=== PATIENT | male | born 1945 | race Caucasian/White ===

== ENCOUNTER 2018-09-30 09:57 | Emergency (ER) | payer OTHER ==
[~2018-09-30] VITALS: Ht 180.3 cm; Wt 108.9 kg
[~2018-09-30 09:57] MED LIST: AMBIEN 10 MG TA10 MG PO; AUGMENTIN 875-1 EACH PO; FLAGYL500 MG PO; LEVAQUIN 500 M500 M2 PO; LORTAB PO; VICODIN 5-5001 EACH PO; ZOLOFT20 MG/1 ML PO
[2018-09-30] MEDS ORDERED: HYDROCODONE-AP1 EAC6 PO (11:59)
[2018-09-30] MEDS ORDERED: NABUMETONE 750750 M1 PO (11:59)
[2018-09-30 12:10] VITALS: BP 143/68
--- NOTE | 2018-10-01 10:31 | EKG ---
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 [employer]: : 1945 Requested By: Bambi Martin Order Number: [id number] MD: Yemi Vaz Measurements Intervals [place] Rate: 63 P: 4 [place]: 58 QRS: -60 QRSD: 112 T: 10 QT: 422 QTc: 433 Interpretive Statements Sinus rhythm Abnormal R-wave progression, late transition Left ventricular hypertrophy Left anterior hemiblock Compared to ECG 05/27/2015 17:53:15 No significant change Electronically Signed On 10-01-2018 10:31:07 CDT by Yemi Vaz [email or web address] ��������������������������������������������� <ELECTRONICALLY SIGNED> ���������������������������������������� By: Yemi Vaz MD ��������������������������������������������� 10/01/18 1031 1016 Yemi Vaz MD /MIL
== END 2018-09-30 12:20 | disposition home or self-care (01) ==
LOC: ER 09:57
DX: S49.82XA Other specified injuries of left shoulder and upper arm, initial encounter (principal); K21.9 Gastro-esophageal reflux disease without esophagitis; E78.00 Pure hypercholesterolemia, unspecified; Z90.49 Acquired absence of other specified parts of digestive tract; Z87.891 Personal history of nicotine dependence; X58.XXXA Exposure to other specified factors, initial encounter; Y93.89 Activity, other specified; Y92.89 Other specified places as the place of occurrence of the external cause; Y99.8 Other external cause status

== ENCOUNTER 2019-11-05 16:05 | Emergency (ER) | payer OTHER ==
[~2019-11-05] VITALS: Ht 177.8 cm; Wt 111.1 kg
[~2019-11-05 16:05] MED LIST changes: +HYDROCODONE-AP1 EAC6 PO; +NABUMETONE 750750 M1 PO
[2019-11-05 16:54] LABS: BASOPHILS 0.5 % (0.0-2.0); EOSINOPHILS 0.2 % (0.0-3.0); HEMOGLOBIN 14.2 gm/dL (14.0-18.0); LYMPHOCYTES 6.5 % (24.0-44.0); MCH 29.8 pg (26.0-34.0); MCHC 33.8 g/dL (28.0-37.0); MCV 87.9 fL (80.0-100.0); MONOCYTES 6.9 % (1.0-8.0); PLATELET COUNT 179 thou/uL (150-400); POLYS 85.9 % (36.0-66.0); RBC 4.78 mil/uL (4.50-6.00); RDW 14.1 % (10.5-14.5); WBC 8.1 thou/uL (4.0-11.0)
[2019-11-05 16:55] LABS: URINE BILIRUBIN NEGATIVE (Negative); URINE BLOOD 2+ (Negative); URINE CLARITY CLEAR; URINE COLOR YELLOW; URINE GLUCOSE-RANDOM* NEGATIVE (Negative); URINE KETONES NEGATIVE (Negative); URINE LEUKOCYTES-REFLEX NEGATIVE (Negative); URINE NITRITE-REFLEX NEGATIVE (Negative); URINE PROTEIN (DIPSTICK) 1+ (Negative); URINE SPECIFIC GRAVITY 1.025 (1.005-1.035)
[2019-11-05 17:00] LABS: BACTERIA-REFLEX None Seen /HPF (None Seen); CRYSTALS None Seen /LPF (None Seen); SQUAMOUS None Seen /LPF (0-3); URINE RBC 0-2 Rare /HPF (0-2); URINE WBC-REFLEX None Seen /HPF (0-5)
[2019-11-05 17:04] LABS: ANION GAP 8 mmol/L (7-16); BUN 16 mg/dL (7-18); CALCIUM 8.3 mg/dL (8.5-10.1); CHLORIDE 103 mmol/L (98-107); CO2 27 mmol/L (21-32); CREATININE 1.4 mg/dL (0.7-1.3); GLUCOSE 112 mg/dL (74-106); POTASSIUM 3.5 mmol/L (3.5-5.1); SODIUM 138 mmol/L (136-145)
[2019-11-05 17:13] LABS: ALBUMIN 2.9 g/dL (3.4-5.0); SGOT 32 U/L (15-37); SGPT 48 U/L (30-65); TOTAL BILIRUBIN 1.1 mg/dL (<0.1-1.0); TOTAL PROTEIN 6.7 g/dL (6.4-8.2); TROPONIN-I <0.06 ng/mL (<0.06)
[2019-11-05] MEDS ORDERED: ZPAK PO (17:38)
[2019-11-05] MEDS ORDERED: PROAIR HFA8.5 GM INH (17:38)
[2019-11-05 17:54] VITALS: BP 148/73
[2019-11-06] MEDS ORDERED: LIPITOR40 MG PO (02:58)
[2019-11-06] MEDS ORDERED: VENLAFAXINE HCL75 M2 PO (03:01)
[2019-11-06] MEDS ORDERED: DESYREL150 MG PO (03:03)
--- NOTE | 2019-11-06 08:03 | EKG ---
[facility] [address] [address] ELECTROCARDIOGRAM REPORT Name: THOMAS FABIAN Room #: DEP [facility] [id number] Admission: 11/05/19 Attend Phys: Discharge: 11/05/19 Date of : 43 Report #: [id number] THIS REPORT FOR: cc: Alex Hernández MD, Rene P. MD Lundgren, Craig H. 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 : 1945 Requested By: Regine Grady Order Number: [id number] MD: Javy Manzo Measurements Intervals [place] Rate: 68 P: -23 AL: 212 QRS: -57 QRSD: 125 T: 19 QT: 416 QTc: 443 Interpretive Statements Sinus rhythm Ventricular premature complex Borderline prolonged AL interval RBBB and LAFB Left ventricular hypertrophy Compared to ECG 09/30/2018 10:16:55 Ventricular premature complex(es) now present Right bundle-branch block now present Electronically Signed On 11-06-2019 8:01:20 CDT by Javy Manzo [email or web address] <ELECTRONICALLY SIGNED> By: Javy Manzo MD, [facility] 11/06/19 0801 1624 1624 Javy Manzo MD, [facility] /EPI
== END 2019-11-05 17:54 | disposition home or self-care (01) ==
LOC: ER 16:05
PROVIDERS: Nurse Practitioner Family
DX: J18.9 Pneumonia, unspecified organism (principal); E78.00 Pure hypercholesterolemia, unspecified; K21.9 Gastro-esophageal reflux disease without esophagitis; Z03.818 Encounter for observation for suspected exposure to other biological agents ruled out; Z90.49 Acquired absence of other specified parts of digestive tract; Z79.899 Other long term (current) drug therapy; Z87.891 Personal history of nicotine dependence

== ENCOUNTER 2019-11-05 23:31 | Inpatient (IN) | payer OTHER ==
[~2019-11-05] VITALS: Ht 177.8 cm; Wt 104.9 kg
[~2019-11-05 23:31] MED LIST changes: +PROAIR HFA8.5 GM INH; +ZPAK PO
[2019-11-06] VITALS (15 sets, daily range): BP systolic 103–179; BP diastolic 57–92
[2019-11-06] MEDS ORDERED: LIPITOR40 MG PO (02:58)
[2019-11-06] MEDS ORDERED: VENLAFAXINE HCL75 M2 PO (03:01)
[2019-11-06] MEDS ORDERED: DESYREL150 MG PO (03:03)
--- NOTE | 2019-11-06 06:42 | NUR ---
PT ARRIVED TO UNIT APPROX 0245, ADMISSION AND ASSESSMENT COMPLETED. IV FLUIDS AND ABX STARTED. PT A&Ox4, [place] AND LEFT HEARING AIDES AT HOME, REPORTS THAT WHEN HE CLOSES HIS EYES HE SEES ALL SORTS OF SHAPES LIKE ANIMALS AND PEOPLE AND THAT HE HEARS MUSIC THAT ISN'T PRESENT. DENIES PAIN. PT REPORTS BEING SOB IS TYPICAL FOR HIM BUT HE HAS AUDIBLE WHEEZES AND EASILY SOB WITH ANY ACTIVITY. HE IS IMPATIENT TO GO HOME. WILL CONTINUE TO MONITOR.
[2019-11-06 10:03] LABS: HEMATOCRIT 43.4 % (42.0-52.0); HEMOGLOBIN 14.4 gm/dL (14.0-18.0); MCH 29.3 pg (26.0-34.0); MCHC 33.2 g/dL (28.0-37.0); MCV 88.1 fL (80.0-100.0); RBC 4.93 mil/uL (4.50-6.00); RDW 14.7 % (10.5-14.5); WBC 11.3 thou/uL (4.0-11.0)
[2019-11-06 10:14] LABS: CALCIUM 8.4 mg/dL (8.5-10.1); CREATININE 1.4 mg/dL (0.7-1.3); POTASSIUM 3.2 mmol/L (3.5-5.1)
--- NOTE | 2019-11-06 14:20 | NUR ---
INITIAL ASSESSMENT: SW reviewed chart and spoke with nursing and attending physician. Pt was admitted from home due to pneumonia/visual hallucinations. Pt is in Enhanced Isolation to r/o COVID-19. Pt's first test is negative. Repeat test ordered. Pt became agitated this morning and trying to leave AMA. Pt is in bilateral wrist restraints at this time. Psych consulted. RUBIO spoke with pt's , Sheila, via phone. Introduced role of SW. Pt is normally alert/orientated x 4. Pt and spouse live in their home. Prior to admission, pt was independent with ADLs. No use of DME. No hx of services and post-acute placement. Pt's PCP is Dr. Hernández. Pt's states that pt started having headaches on , 10/31 and got worse since that time. Pt came to the ER on Tuesday, 11/03. Was evaluated by ER staff and pt chose to not be admitted. Pt returned home. Pt's condition did not improve. Pt returned to the ER yesterday and was admitted early this morning. Pt is no 4L of O2 and fever of 103.6 this afternoon. Pt's states she is not able to bring pt home in his current condition. Pt's was tested this morning for COVID-19. SW explained that pt is not medically stable for discharge and that psych will evaluate pt when he is able to participate. SW is following to assist as needed with discharge planning.
[2019-11-06 18:11] LABS: BE(vivo) -4.9 mmol/L (-2 to +3); HCO3 19.7 mmol/L (22.0-26.0); PCO2 35.3 mmHg (35.0-45.0); PO2 61.4 mmHg (80.0-100.0); pH 7.364 (7.360-7.450)
--- NOTE | 2019-11-06 19:55 | NUR ---
PT'S FIRST COVID TEST WAS NEGATIVE, BUT PT HAS SOB AND FEVER, PT HAS SECOND COVID TEST AT TODAY 1400PM.
--- NOTE | 2019-11-06 19:56 | NUR ---
PT STARTS MORE CONFUSED AND AGITATION ABOUT 1000AM, PT HAS FEVER AFTERNOON, RN HAS CALLED HOSPITAL , NEW ORDER RECEIVED, PT'S FEVER HAS IMPROVED BY 1600PM, BUT PT HAS INCRESED SOB , BREATHING IS FAST 30-35 / MIN, RN HAS CALLED HOSPITAL , ABG DONE , NEW CONSULT PULMONARY DR HAS SEEING PT, NEW ORDER, APPLY BIPAP AND TRANSFER PT TO ICU, PT STARTS BOTH WRIST SOFT RESTRAINT AT 1315PM.
--- NOTE | 2019-11-06 21:52 | NUR ---
ASSUMED CARE FOR PT AT 1845. PT ON BIPAP TO ASSIST WITH BREATHING. PT WAS PLACED IN RESTRAINTS EARLIER IN THE DAY. COVID TEST #2 CAME BACK NEGATIVE. PUT ORDERS FOR PT TO BE TRANSFERRED TO ICU DUE TO INCREASING PULMONARY DISTRESS AND POSSIBLE SEPSIS RISK. GAVE REPORT TO ONEYDA IN ICU. PT WAS TRANSFERRED TO ROOM 243.
[2019-11-06 22:56] LABS: BE(vivo) -6.1 mmol/L (-2 to +3); HCO3 19.9 mmol/L (22.0-26.0); PCO2 40.9 mmHg (35.0-45.0); PO2 212.6 mmHg (80.0-100.0); sO2 99.3 % (92.0-98.0)
[2019-11-06 22:57] LABS: pH 7.305 (7.360-7.450)
[2019-11-06 23:03] LABS: CALCIUM 8.2 mg/dL (8.5-10.1); CREATININE 1.6 mg/dL (0.7-1.3); TROPONIN-I 0.08 ng/mL (<0.06)
[2019-11-06 23:06] LABS: POTASSIUM 4.4 mmol/L (3.5-5.1)
[2019-11-06 23:47] LABS: ICTOTEST (BILI CONFIRMATORY) Positive (Negative); URINE BILIRUBIN 1+ (Negative); URINE BLOOD 3+ (Negative); URINE CLARITY SL CLOUDY; URINE COLOR YELLOW; URINE GLUCOSE-RANDOM* NEGATIVE (Negative); URINE KETONES TRACE (Negative); URINE LEUKOCYTES-REFLEX NEGATIVE (Negative); URINE NITRITE-REFLEX NEGATIVE (Negative); URINE PROTEIN (DIPSTICK) 3+ (Negative); URINE SPECIFIC GRAVITY >= 1.030 (1.005-1.035); URINE UROBILINOGEN 0.2 E.U./dl (0.2-1.0)
[2019-11-06 23:52] LABS: FINE GRANULAR CASTS >10 Many /LPF (None Seen); MUCUS 4-6 Moderate strn/LPF (None Seen); SQUAMOUS None Seen /LPF (0-3)
[2019-11-06 23:53] LABS: BACTERIA-REFLEX 1-9 Few /HPF (None Seen); COARSE GRANULAR CASTS 0-3 Few /LPF (None Seen); CRYSTALS None Seen /LPF (None Seen); TRANSITIONAL EPITHEL CELL 4-10 Moderate /LPF (None Seen); URINE RBC >20 Many /HPF (0-2); URINE WBC-REFLEX 0-5 Rare /HPF (0-5)
[2019-11-07] VITALS (87 sets, daily range): BP systolic 94–142; BP diastolic 49–77
[2019-11-07 01:08] LABS: HEMATOCRIT 37.5 % (42.0-52.0); HEMOGLOBIN 12.5 gm/dL (14.0-18.0); MCH 29.6 pg (26.0-34.0); MCHC 33.4 g/dL (28.0-37.0); MCV 88.7 fL (80.0-100.0); RBC 4.23 mil/uL (4.50-6.00); RDW 14.7 % (10.5-14.5); WBC 9.4 thou/uL (4.0-11.0)
[2019-11-07 01:20] LABS: CALCIUM 7.4 mg/dL (8.5-10.1); CREATININE 1.5 mg/dL (0.7-1.3); POTASSIUM 3.8 mmol/L (3.5-5.1)
[2019-11-07 01:23] LABS: APTT 41.8 Seconds (24.5-32.8); INR 1.1; PROTIME 11.4 Seconds (9.3-11.4)
[2019-11-07 01:28] LABS: FIBRINOGEN 831.9 mg/dL (210-360)
[2019-11-07 05:24] LABS: BE(vivo) -5.4 mmol/L (-2 to +3); HCO3 21.2 mmol/L (22.0-26.0); PCO2 45.5 mmHg (35.0-45.0); PO2 109.2 mmHg (80.0-100.0); sO2 97.4 % (92.0-98.0)
[2019-11-07 05:25] LABS: pH 7.286 (7.360-7.450)
[2019-11-07 06:00] LABS: HEMATOCRIT 35.5 % (42.0-52.0); HEMOGLOBIN 11.8 gm/dL (14.0-18.0); MCH 29.7 pg (26.0-34.0); MCHC 33.3 g/dL (28.0-37.0); RBC 3.98 mil/uL (4.50-6.00); RDW 14.8 % (10.5-14.5); WBC 8.4 thou/uL (4.0-11.0)
[2019-11-07 06:14] LABS: CALCIUM 7.6 mg/dL (8.5-10.1); CREATININE 1.4 mg/dL (0.7-1.3); MAGNESIUM 2.4 mg/dL (1.8-2.4); POTASSIUM 3.5 mmol/L (3.5-5.1); TOTAL BILIRUBIN 0.6 mg/dL (0.2-1.0); TOTAL PROTEIN 5.5 g/dL (6.4-8.2)
--- NOTE | 2019-11-07 06:14 | NUR ---
PATIENT RECEIVED AT APPROX 2100 FROM 3W UNIT DUE TO RESP. DISTRESS. PATIENT ARRIVED WITH HEART RATE IN THE 140S, AND RR IN THE 50S, AND BP 160-170S SYSTOLIC. DR. ROBERTS NOTIFIED AT THAT TIME. AT APPROX 220O, ER DOCTOR TO THE BEDSIDE TO INTUBATE PATIENT. PATIENT STARTED ON A DIPROVAN GTT AND A VERSED GTT. ORDERS FOR HEAD CT WILL BE DEFERRED TO THE DAY TEAM PER DR. ROBERTS'S ORDERS. PATIENT ALSO FEBRILE ON ARRIVAL TO ICU AT A MAX OF 101.9 NOW DOWN TO 97.8. URINE OUTPUT MARGINAL THROUGH THE SHIFT, NEW ORDERS RECEIVED, SEE CHART. VITALS STABLE AT THIS TIME. CRITICAL PH ON ABG CALLED TO DR. ROBERTS, NO CHANGES AT THIS TIME. DR. GARCIA NOTIFIED AND UPDATED OF PATIENT'S CHANGE IN CONDITION. WILL REPORT OFF TO DAY TEAM.
--- NOTE | 2019-11-07 08:36 | EKG ---
[facility] [address] [employer] [place] [address] ELECTROCARDIOGRAM REPORT Name: THOMAS FABIAN Room #: 243-P ADM IN M.R.#: [id number] Admission: 11/06/19 Attend Phys: Barak Joyner MD Discharge: Date of : 43 Report #: [id number] THIS REPORT FOR: cc: Alex Hernández MD, Rene P. 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 : 1945 Requested By: Brock Hardy Order Number: [id number] MD: Javy Manzo Measurements Intervals [place] Rate: 111 P: -40 [place]: 173 QRS: -87 QRSD: 133 T: 55 QT: 342 QTc: 465 Interpretive Statements Sinus tachycardia Right bundle branch block Left anterior hemiblock Baseline wander in lead(s) III,aVF,V2,V3,V4,V5,V6 Compared to ECG 11/05/2019 16:24:55 Heart rate has increased Ventricular premature complex(es) no longer present Electronically Signed On 11-07-2019 8:34:56 CDT by Javy Manzo [email or web address] <ELECTRONICALLY SIGNED> By: Javy Manzo MD, [facility] 11/07/19 0834 33 223 Javy Manzo MD, [facility] /EPI
--- NOTE | 2019-11-07 13:07 | NUR ---
VAT CONSULTED FOR A CL FOR THIS PT. 6FRTLCL PLACED RT IJ X1 ATTEMPT. CXR ORDERED FOR TIP CONFIRMATION. PLEASE SEE INSERTION NI FOR DETAILS
--- NOTE | 2019-11-07 13:46 | NUR ---
PT VENTILATED. GAVE PT SEDATION VACATION AT 0800, PT WAS UNAROUSABLE TO ANY STIMULI. PROPOFOL ULTIMATELY TURNED BACK ON DUE TO PT BEING TACHYPNEIC. CT OF HEAD TODAY. AT BEGINING OF MY SHIFT PT WAS HYPOTHERMIC. MILAN HARRIS ORDERED; PT NOW NORMOTHERMIC. CENTRAL LINE STARTED BY IV ACCESS TEAM. CXR FOR TIP PLACEMENT CONFIRMATION. POLYUREA. LUNGES CLEAR/DIMINISHED TO AUSCULTATION. PLAN IS TO CPAP TOMORROW.
--- NOTE | 2019-11-07 16:59 | NUR ---
SW reviewed chart and spoke with nursing and attending physician. Pt was transferred to ICU from 3 due to respiratory distress. Pt is currently intubated. ID consulted. Pt is in Enhanced Precautions. Pt has had two negative COVID-19 tests. SW received call from pt's , Sheila, earlier today. SW returned call and left voice message with contact info for SW and ICU Pod #2. RUBIO is following to assist as needed with discharge planning.
[2019-11-08] VITALS (59 sets, daily range): BP systolic 89–132; BP diastolic 49–71
[2019-11-08 03:38] LABS: MCH 29.7 pg (26.0-34.0); MCHC 33.5 g/dL (28.0-37.0); MCV 88.7 fL (80.0-100.0); RBC 4.05 mil/uL (4.50-6.00); RDW 15.2 % (10.5-14.5); WBC 7.2 thou/uL (4.0-11.0)
[2019-11-08 03:40] LABS: CALCIUM 7.6 mg/dL (8.5-10.1); CREATININE 1.2 mg/dL (0.7-1.3); MAGNESIUM 2.3 mg/dL (1.8-2.4); POTASSIUM 3.4 mmol/L (3.5-5.1)
--- NOTE | 2019-11-08 06:13 | NUR ---
PATIENT VERY RESTLESS WHEN SEDATION PAUSED AT THE START OF THE SHIFT. PATIENT MOVED ALL EXTREMITIES. HOWEVER, DID NOT FOLLOW COMMANDS. RESP. RATE IN THE 40S, SEDATION RESTARTED AT THAT TIME. BLOOD PRESSURE HAS REMAINED ON THE SOFT SIDE, CURRENTLY ON 5 MCG/MIN OF LEVOPHED. INTITIALLY AT THE BEGINNING OF TH SHIFT, PATIENT FEBRILE WITH A TEMP MAX OF 39 DEGREES CELCIUS. PATIENT NOW NORMOTHERMIC WITH A TEMP OF 37.4 DEGRESS CELCIUS. MULLINS CATHETER DRAINING YELLOW URINE, TOTAL OUTPUT 725CC THIS SHIFT. SPOKE WITH , CHELSEA FABIAN LAST NIGHT AND UPDATED HER ON PATIENT'S CONDITION. SHE ALSO VERBALLY GAVE CONSENT OVER THE PHONE TO PROCEDE WITH LUMBAR PUNCTURE TODAY, CONSENT IS ON THE CHART. WILL REPORT OFF TO DAY SHIFT RN.
--- NOTE | 2019-11-08 09:43 | NUR ---
If unable to extubate soon, recommend start vital high protein tube feeding at 25ml/hr, goal of 35ml/hr while on propofol.
--- NOTE | 2019-11-08 14:19 | NUR ---
PT WEANED OFF LEVOPHED AND DR. HERRERA INFORMED. BLOOD PRESSURE IS 121/60.
--- NOTE | 2019-11-08 14:43 | NUR ---
SW reviewed chart and spoke with attending physician. Pt remains intubated and in Enhanced Precautions. Pt to have LP today. SW is following to assist as needed with discharge planning.
--- NOTE | 2019-11-08 16:52 | NUR ---
PT RETURN FROM IR FOR LP AND WILL AJAY FLAT FOR SEVERAL HOUR.
[2019-11-08 16:53] LABS: CSF PROTEIN 47 mg/dL (15-45)
[2019-11-08 17:05] LABS: CSF CLARITY CLEAR; CSF COLOR COLORLESS; CSF RBC 9 /mm3; CSF WBC 2 /mm3 (0-10); VOLUME 8.5 ml
--- NOTE | 2019-11-08 18:31 | NUR ---
PT HAD LUMBAR PUNCTURE TODAY AND CULTURES SENT. NEUROLOGY MIGHT DO EEG IN AM PER DR. ONEAL. WILL CONTINUE TO ASSESS.
--- NOTE | 2019-11-08 21:25 | NUR ---
SPOKE WITH LISA ORTEGAING CLARIFICATION OF ISOLATION STATUS. PATIENT IS OKAY NOT TO BE IN ENHANCED PRECAUTIONS.
[2019-11-09] VITALS (53 sets, daily range): BP systolic 109–150; BP diastolic 56–81
[2019-11-09 04:12] LABS: HEMATOCRIT 35.4 % (42.0-52.0); HEMOGLOBIN 11.8 gm/dL (14.0-18.0); MCH 29.6 pg (26.0-34.0); MCHC 33.2 g/dL (28.0-37.0); MCV 88.9 fL (80.0-100.0); RBC 3.98 mil/uL (4.50-6.00); RDW 15.5 % (10.5-14.5); WBC 6.4 thou/uL (4.0-11.0)
[2019-11-09 04:17] LABS: CALCIUM 7.7 mg/dL (8.5-10.1); MAGNESIUM 2.6 mg/dL (1.8-2.4); POTASSIUM 3.8 mmol/L (3.5-5.1)
--- NOTE | 2019-11-09 06:01 | NUR ---
PATIENT VERY RESTLESS OFF SEDATION. OPENS EYES SPONTANEOUSLY OFF SEDATION BUT DOESN'T TRACK NOR FOLLOW COMMANDS. PATIENT PLACED BACK ON CONTINUOUS SEDATION DUE TO TACHYPNEA AND RESTLESSNESS. PATIENT HAS REMAINED OFF PRESSORS ALL NIGHT. PATIENT AFEBRILE ALL NIGHT. NO CHANGES IN VENT SETTINGS OVER NIGHT. MULLINS CATHETER DRAINING ADEQUATE CLEAR/YELLOW URINE. NO BOWEL MOVEMENT. FAMILY CALLED AND UPDATED. WILL REPORT OFF TO DAY SHIFT RN.
--- NOTE | 2019-11-09 16:48 | NUR ---
RUBIO reviewed chart and spoke with nursing and attending physician. Pt remains intubated. Pt failed cpap trial earlier today. Pt had LP yesterday. RUBIO left voice message for pt's , Lyssa, to provide update. RUBIO spoke with pt's dtr, Marissa, via phone. Update provided. Marissa requests attending physician contact pt's if possible today. RUBIO provided pt's 's contact info to attending physician. No weekend discharge planned. RUBIO is following to assist as needed with discharge planning.
--- NOTE | 2019-11-09 17:27 | NUR ---
PT INTUBATED AND SEDATED ON PROPOFOL. PT VERY RESTLESS FOR MOST OF THE SHIFT. VSS, SR ON TELE. SUSANNA TO DD. PT TURNED FREQUETLY THIS SHIFT. SPOKE WITH PT DAUGHTER TODAY TO UPDATE ON CARE. WILL CONTINUE TO MONITOR.
--- NOTE | 2019-11-09 22:34 | NUR ---
SPOKE WITH (CHELSEA) AND DAUGHTER (RADHA) AND UPDATED ON PATIENT'S CONDITION.
[2019-11-10] VITALS (53 sets, daily range): BP systolic 101–155; BP diastolic 46–86
[2019-11-10 03:09] LABS: HEMATOCRIT 36.1 % (42.0-52.0); HEMOGLOBIN 12.1 gm/dL (14.0-18.0); MCH 29.8 pg (26.0-34.0); MCHC 33.5 g/dL (28.0-37.0); MCV 88.8 fL (80.0-100.0); RBC 4.07 mil/uL (4.50-6.00); RDW 15.8 % (10.5-14.5); WBC 7.8 thou/uL (4.0-11.0)
[2019-11-10 03:14] LABS: CALCIUM 7.6 mg/dL (8.5-10.1); MAGNESIUM 2.3 mg/dL (1.8-2.4)
--- NOTE | 2019-11-10 06:28 | NUR ---
PATIENT ON PROPOFOL FOR VENTILATOR MANAGEMENT. IS ALERT AND ANXIOUS, DOES NOT FOLLOW COMMANDS BUT MOVES ALL EXTREMITIES. SINUS RHYTHM ON WOOD BOX MAKER. TOLERATING TUBE FEEDING AT GOAL RATE WITH RESIDUAL LESS THAN 10, MULLINS PATENT WITH GREATER THAN 30ML/HR OUTPUT. FAMILY UPDATED ON PLAN OF CARE, QUESTIONS ANSWERED. NO SIGN OF ACUTE DISTRESS NOTED AT THIS TIME. WILL CONTINUE TO MONITOR.
--- NOTE | 2019-11-10 12:48 | NUR ---
PATIENT CONT TO BE QUITE DEPEDENT ON PROPOFOL TO STAY CALM. EACH TIME A DECREASE IN RATE HAS BEEN ATTEMPTED HE BEGINS TO AGITATE. HE DOES NOT SEEM TO BE IN PAIN HOWEVER JUST RESTLESS. SPOKE WITH AND UPDATED HER ON HIS STATUS. WILL CONT WITH PLAN OF CARE.
--- NOTE | 2019-11-10 23:17 | NUR ---
Patient's wallet containing 4 credit/debit cards from [facility], care credit card, insurance card, and drivers license; gold colored watch; set of keys; and eye glasses put in patient valuable envelope and given to security for spouse to tack picker in the morning.
[2019-11-11] VITALS (24 sets, daily range): BP systolic 95–133; BP diastolic 40–64
--- NOTE | 2019-11-11 05:19 | NUR ---
Received report from offgoing RN and assumed patient care. Patient remains on the ventilator with Propofol and Precedex infusing for sedation. Patient does not follow any commands and is noted to be SR on the monitor. Vital HP is infusing at the goal rate of 35 mL/hr. VS remained stable and no acute events occurred during this shift.
[2019-11-11 05:54] LABS: HEMATOCRIT 36.3 % (42.0-52.0); HEMOGLOBIN 11.9 gm/dL (14.0-18.0); MCH 29.5 pg (26.0-34.0); MCHC 32.7 g/dL (28.0-37.0); MCV 90.2 fL (80.0-100.0); RBC 4.02 mil/uL (4.50-6.00); RDW 15.8 % (10.5-14.5); WBC 8.1 thou/uL (4.0-11.0)
[2019-11-11 06:27] LABS: CREATININE 0.8 mg/dL (0.7-1.3); MAGNESIUM 2.5 mg/dL (1.8-2.4)
[2019-11-11 19:10] LABS: TSH 1.137 uIU/mL (0.358-3.740)
[2019-11-12] VITALS (24 sets, daily range): BP systolic 104–133; BP diastolic 43–75
[2019-11-12 06:26] LABS: CALCIUM 7.9 mg/dL (8.5-10.1); CREATININE 0.8 mg/dL (0.7-1.3); POTASSIUM 4.4 mmol/L (3.5-5.1)
--- NOTE | 2019-11-12 08:01 | NUR ---
SEE Aneumed FOR ASSESSMENT. PT SEDATED WITH PROPOFOL AND PRECEDEX, OTHERWISE RESTLESS. NO FOLLOW COMMANDS. FEBRILE DURING NOT WITH TEMP MAX 100.8 TYLENOL GIVEN. UO ADEQUATE. LS.-DIMINISHED, BUT FAIRLY CLEAR. MINIMAL SECRETIONS VIA ETT.02SAT WNL ON .40 FI02. NO CPAP TRIAL NOT YET PROGRESSING TOWARD GOALS. CONT PLAN OF CARE
--- NOTE | 2019-11-12 10:19 | NUR ---
PT IN NEED OF MRI/MRA. PT IS ON SEDATION AND BECOMES VERY RESTLESS AND AGITATED WHEN SEDATION IS OFF. SPOKE WITH DR ANDRES, GOING TO TRY 4MG IVP OF VERSED WHILE HERE IN ROOM AND SEE HOW PT RESPONDS AND HOW LONG IT KEEPS PT SEDATED TO DEVISE A PLAN FOR SEDATION WHILE IN MRI
--- NOTE | 2019-11-12 10:33 | NUR ---
SPOKE WITH DR HERRERA ABOUT PT RESIDUALS. TUBE FEED IS CURRENTLY ON HOLD FOR RESIDUAL OF 200 ML. HE WILL ADDRESS.
--- NOTE | 2019-11-12 10:41 | NUR ---
Nutrition: REC add 250 mL H20 flushes BID with beneprotein powder for additional protein.
--- NOTE | 2019-11-12 11:23 | 2DMMODE ---
[facility] [place] [address] 2 D/M-MODE ECHOCARDIOGRAM Name: THOMAS FABIAN Room #: 243-P ADM IN M.R.#: [id number] Admission: 11/06/19 Attend Phys: Barak Joyner MD Discharge: Date of : 43 Report #: [id number] THIS REPORT FOR: cc: Alex Hernández MD, Rene P. MD Park, Jin S. MD ~ APPROVED REPORT Study performed: 11/12/2019 10:06:16 EXAM: Comprehensive 2D, Doppler, and color-flow Echocardiogram Patient Location: ICU Room #: 243 Status: routine BSA: 2.23 HR: 80 bpm BP: 128/66 mmHg Rhythm: NSR Other Information Study Quality: Good Indications R^O Endocarditis 2D Dimensions RVDd: 34.22 mm IVSd: 9.47 (7-11mm) LVOT Diam: 21.67 (18-24mm) LVDd: 52.65 mm PWd: 11.05 (7-11mm) Ascending Ao: 29.91 (22-36mm) LVDs: 36.45 (25-40mm) Aortic Root: 33.42 mm IVC: 18.00 mm Volumes Left Atrial Volume (Systole) Single Plane 4CH: 73.83 mL Single Plane 2CH: 61.15 mL LA ESV Index: 34.00 mL/m2 Aortic Valve AoV Peak Anuel.: 1.71 m/s AO Peak Gr.: 11.63 mmHg LVOT Max P.66 mmHg LVOT Max V: 1.19 m/s LAKHWINDER Vmax: 2.57 cm2 [facility] [address] [place] [address] 2 D/M-MODE ECHOCARDIOGRAM Name: RUITHOMAS Room #: 243-P [facility]#: [id number] Admission: 11/06/19 Attend Phys: Barak Joyner MD Discharge: Date of : 43 Report #: [id number] Mitral Valve E/A Ratio: 1.1 MV Decel. Time: 203.19 ms MV E Max Anuel.: 0.97 m/s MV A Anuel.: 0.87 m/s MV PHT: 58.92 ms IVRT: 78.43 ms Pulmonary Valve PV Peak Anuel.: 1.19 m/s PV Peak Gr.: 5.65 mmHg Pulmonary Vein P Vein S: 0.50 m/s P Vein A: 0.21 m/s P Vein D: 0.42 m/s P Vein A Dur.: 78.4 msec P Vein S/D Ratio: 1.19 Left Ventricle The left ventricle is normal size. There is normal LV segmental wall motion. There is normal left ventricular wall thickness. Left ventricular systolic function is normal. The left ventricular ejection fraction is within the normal range. LVEF is 55-60%. The left ventricular diastolic function is normal. Right Ventricle The right ventricle is normal size. The right ventricular systolic function is normal. Atria The left atrium size is normal. The right atrium size is normal. Aortic Valve The aortic valve is normal in structure. Trace aortic regurgitation. There is no aortic valvular stenosis. Mitral Valve The mitral valve is normal in structure. Mild mitral regurgitation. No evidence of mitral valve stenosis. Tricuspid Valve The tricuspid valve is normal in structure. There is no tricuspid valve regurgitation noted. Pulmonic Valve The pulmonary valve is normal in structure. There is no pulmonic valvular regurgitation. [facility] [address] [place] [address] 2 D/M-MODE ECHOCARDIOGRAM Name: THOMAS FABIAN Room #: 243-P ADM IN .R.#: [id number] Admission: 11/06/19 Attend Phys: Barak Joyner MD Discharge: Date of : 43 Report #: [id number] Great Vessels The aortic root is normal in size. IVC is normal in size and collapses >50% with inspiration. Pericardium There is no pericardial effusion. <Conclusion> The left ventricle is normal size. There is normal left ventricular wall thickness. Left ventricular systolic function is normal. The right ventricle is normal size. The left atrium size is normal. The aortic valve is normal in structure. Mild mitral regurgitation. There is no tricuspid valve regurgitation noted. <ELECTRONICALLY SIGNED> By: Yemi Vaz MD 11/12/190 1120 19 Yemi Vaz MD /INF
--- NOTE | 2019-11-12 11:36 | NUR ---
pt precedex and propofol were turned off at 1100 and ivp versed was given. at 1132 pt became restless and moving around. gtts turned back on.
--- NOTE | 2019-11-12 13:49 | NUR ---
spoke with dr cadena, going to attempt to wean pt off of propofol d/t high triglycerides. dr cadena put in order for dilaudid and said to use versed if needed in addition to precedex.
--- NOTE | 2019-11-12 14:50 | NUR ---
PT WAS GIVEN VERSED IVP AND DILAUDID ALONG WITH THE PRECEDEX GTT RUNNING AND THE PROPOFOL TURNED OFF. PT IS CURRENTLY RESTLESS AND AGITATED, MOVING AROUND IN BED CONSTANTLY, HR UP TO 100S. SENT MESSAGE TO RX FOR VERSED GTT.
--- NOTE | 2019-11-12 14:51 | NUR ---
SPOKE WITH PT , GAVE HER AN UPDATE AND REVIEWED MRI SCREENING WIHT HER. PT DAUGHTER BROUGHT PT CELL PHONE, CELL PHONE PHYSICAL THER AND FAMILY PICUTRES UP AND TOOK PT BELONGINGS FROM SECURITY HOME WITH HER AFTER VERIFYING WITH THAT THIS WAS OK. BELONGINGS IN SECURITY WERE KEYS, GLASSES, WATCH AND WALLET.
--- NOTE | 2019-11-12 16:25 | NUR ---
SW reviewed chart and spoke with nursing and attending physician. Pt remains intubated and in ICU. Pt to have MRI tomorrow per neuro. Nursing has updated pt's . SW is following to assist as needed with discharge planning.
--- NOTE | 2019-11-12 18:41 | HC ---
[facility] [place] [address] [address] CONSULTATION Name: THOMAS FABIAN Room #: Counts include 234 beds at the [facility] IN ..#: [id number] Admission: 11/06/19 Attend Phys: Barak Joyner MD Discharge: Date of : 43 Report #: [id number] THIS REPORT FOR: cc: Alex Hernández MD, Rene P. MD Khosla, Parveen K. MD ~ CC: Barak Hernández DATE OF SERVICE: 11/08/2019 HISTORY OF PRESENT ILLNESS: This is a 74-year-old male patient who was seen by me last night and the consult is being completed now. This patient is being evaluated for encephalopathy. The patient came to Emergency Room and that note was reviewed. He was having some shortness of breath and headache. Second time, he came to Emergency Room, he was hallucinating. He does have a history of depression. He also has a history of insomnia. REVIEW OF SYSTEMS: A 14-point review of system was carried out and this was a relevant 14-point review of system that he came in with. He is not able to provide any history and I cannot get much else from the record. I will try to reach the family. PAST MEDICAL HISTORY: Unavailable. FAMILY HISTORY: Unremarkable. The patient has been running temperature here. SOCIAL HISTORY: He apparently has smoked in the past. PHYSICAL EXAMINATION: The patient's examination is very limited. He is sedated. He becomes restless when the sedation is taken off according to the nurses, but he does not follow any purposeful commands. Otherwise, he is drowsy. He does not appear to have any meningeal sign. His reflexes are not elicitable. Blood pressure is 122/65 and pulse is 76. LABORATORY DATA: He did have a CT scan of the head yesterday and that was unremarkable. IMPRESSION: Clinically, it would appear the patient has encephalopathy. We will start with an EEG. Depending upon what course the patient takes we may have to do further workup like MRI if he stabilizes. He did have a spinal tap, preliminary results does not appear to be showing any infection. [facility] [address] [place] [address] CONSULTATION Name: RUITHOMAS Room #: 243-P [facility] IN ..#: [id number] Admission: 11/06/19 Attend Phys: Barak Joyner MD Discharge: Date of : 43 Report #: [id number] Thank you very much for this referral. <ELECTRONICALLY SIGNED> By: Rashard Celaya MD 11/12/19 1841 1755 22 Rashard Celaya MD /nt
--- NOTE | 2019-11-12 18:41 | EEG ---
[facility] [place] [address] ELECTROENCEPHALOGRAM Name: THOMAS FABIAN Room #: 243-P [facility] IN M.R.#: [id number] Admission: 11/06/19 Attend Phys: Barak Joyner MD Discharge: Date of : 43 Report #: [id number] THIS REPORT FOR: //name// CC: Barak Johnson [facility] DATE OF SERVICE: 11/09/2019 This patient is being evaluated for encephalopathy. EEG was done by placing the electrode by standard 10-20 system of electrode placement. Both referential and sequential montages were used for recording. Background activity in this patient's EEG is about 5-6 Hz and 30 microvolt. This is a symmetrical activity. Photic stimulation is unremarkable. Throughout the record, no active epileptiform activity was noted. IMPRESSION: This is an abnormal EEG, which is disorganized and poorly formed. That finding can be consistent with encephalopathy, but it is a nonspecific finding. Clinical correlation is recommended. <ELECTRONICALLY SIGNED> By: Rashard Celaya MD 11/12/19 [phone] 01 Rashard Celaya MD /nt
[2019-11-13] VITALS (22 sets, daily range): BP systolic 92–157; BP diastolic 45–80
--- NOTE | 2019-11-13 09:15 | NUR ---
PAGE TO VIA OFFICE RE:RASH BACK,TRUNK,ARMS.--VW
[2019-11-14] VITALS (24 sets, daily range): BP systolic 94–130; BP diastolic 48–62
[2019-11-14 05:02] LABS: HCO3 22.2 mmol/L (22.0-26.0); PCO2 44.5 mmHg (35.0-45.0); PO2 86.1 mmHg (80.0-100.0); sO2 95.7 % (92.0-98.0)
[2019-11-14 05:03] LABS: pH 7.315 (7.360-7.450)
[2019-11-14 05:19] LABS: ALBUMIN 1.9 g/dL (3.4-5.0); CALCIUM 7.6 mg/dL (8.5-10.1); CREATININE 0.8 mg/dL (0.7-1.3); POTASSIUM 4.2 mmol/L (3.5-5.1); TOTAL BILIRUBIN 0.4 mg/dL (0.2-1.0); TOTAL PROTEIN 5.2 g/dL (6.4-8.2)
[2019-11-14 05:39] LABS: ABSOLUTE NEUTROPHILS 5.4 thou/uL (1.4-8.2); BASOPHILS 0.4 % (0.0-2.0); HEMATOCRIT 35.3 % (42.0-52.0); HEMOGLOBIN 11.5 gm/dL (14.0-18.0); LYMPHOCYTES 14.6 % (24.0-44.0); MCH 29.6 pg (26.0-34.0); MCHC 32.7 g/dL (28.0-37.0); MCV 90.4 fL (80.0-100.0); MONOCYTES 6.6 % (1.0-8.0); PLATELET COUNT 231 thou/uL (150-400); POLYS 76.4 % (36.0-66.0); RDW 15.1 % (10.5-14.5); WBC 7.1 thou/uL (4.0-11.0)
--- NOTE | 2019-11-14 07:59 | EKG ---
[facility] [place] [address] ELECTROCARDIOGRAM REPORT Name: THOMAS FABIAN Room #: 243-P ADM IN M.R.#: [id number] Admission: 11/06/19 Attend Phys: Barak Joyner MD Discharge: Date of : 43 Report #: [id number] THIS REPORT FOR: cc: Alex Hernández MD, Rene P. MD Lundgren,Javy Modi MD [facility] ~ THIS REPORT FOR: //name// [facility] Test Date: 2019-11-13 Test Time: 10:28:16 Pat Name: THOMAS FABIAN Department: Room: 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: Herb AARON : 1945 Requested By: Med Renteria Order Number: [id number] MD: Javy Manzo Measurements Intervals [place] Rate: 64 P: 3 ND: 260 QRS: -59 QRSD: 118 T: 60 QT: 436 QTc: 450 Interpretive Statements Sinus rhythm Atrial premature complex Prolonged ND interval Incomplete right bundle branch block Left anterior hemiblock Compared to ECG 11/06/2019 22:34:51 Atrial premature complex(es) now present Sinus tachycardia no longer present Electronically Signed On 11-14-2019 7:57:39 CDT by Javy Manzo [email or web address] <ELECTRONICALLY SIGNED> By: Javy Manzo MD, [facility] 11/14/19 0757 1028 1028 Javy Manzo MD, [facility] /EPI
--- NOTE | 2019-11-14 08:33 | NUR ---
SEE [employer] FOR ASSESSMENT. PT NOT PROGRESSING TOWARD GOALS. CONTINUES TO THRASH AROUND IN BED, CONSTANT MOVEMENT FROM SIDE TO SIDE DESPITE MEDS FOR SEDATION INFUSING. TMAX 100.4. TYLENOL GIVEN SUPP. LS-SCATTERED COARSE RHONCI RT >LT. SECRETIONS THIN FROTHY VIA ETT. CHEST DONE THIS AM. ABG SHOWN TO DR ANDRES. NO NEW ORDERS. HIGH RESIDUALS WIIH TF. LOOSE BM AFTER SUPPOSITORY GIVEN. UPDATE GIVEN TO FAMILY.
--- NOTE | 2019-11-14 09:19 | NUR ---
UPON GETTING REPORT THIS MORNING PT WAS THRASHING AROUND IN BED, HR IN THE 110S, INDUSTRIAL TRUCK OPERATOR RN HAD REDUCED VERSED FROM 10 MLS/HR TO 5 MLS/HR, THIS RN TURNED VERSED BACK UP TO THE 10 MLS/HR THAT HAD BEEN ADEQUATELY SEDATING PT. PT IS NOW SEDATED ADEQUATELY, STILL AWAKENS TO TOUCH OR CARES, BUT RETURNS TO RESTFUL SOON AFTER. TF RESIDUAL 190, TUBE FEED ON HOLD.
--- NOTE | 2019-11-14 11:17 | NUR ---
PT CALLED, UPDATE GIVEN.
--- NOTE | 2019-11-14 16:17 | NUR ---
SW reviewed chart and spoke with nursing and attending physician. Pt remains intubated and sedated in ICU. SW is following to assist as needed with discharge planning.
--- NOTE | 2019-11-14 19:07 | NUR ---
PT TO GO TO CT IN AM
--- NOTE | 2019-11-14 20:58 | NUR ---
SPOKE WITH ON THE PHONE AND GAVE UPDATE ON PATIENT PLAN OF CARE, WOULD LIKE PHYSICIAN TO CALL HER TOMORROW TO DISCUSS PLAN OF CARE.
--- NOTE | 2019-11-14 23:05 | NUR ---
SPOKE TO DAUGHTER (RADHA WONG), DAUGHTER ASKED TO SPEAK TO PATIENT THROUGH PHONE. REQUEST GRANTED.
[2019-11-15] VITALS (17 sets, daily range): BP systolic 114–151; BP diastolic 52–72
--- NOTE | 2019-11-15 06:34 | NUR ---
PATIENT ON SEDATION, OPENS EYES BUT DOES NOT FOLLOW COMMANDS. ON VENTILATOR 40% FIO2, O2 SAT REMAINED ABOVE 90%. TUBE FEEDING HELD PENDING CT SCAN PLANNED FOR TODAY, RESIDUAL CHECK 100 AT 0400. MULLINS PATIENT WITH GREATER THAN 30ML OUTPUT. SCHEDULED QUETIAPINE AND VALPROATE GIVEN OVER NIGHT, PATIENT RESTED WELL WITH DECREASED SIGNS OF AGITATION. PATIENT PROGRESSING TOWARDS GOALS. NO SIGN OF ACUTE DISTRESS NOTED AT THIS TIME. WILL CONTINUE TO MONITOR.
--- NOTE | 2019-11-15 09:52 | NUR ---
RN assumed care at 0700. PT appeared to be resting in bed. Dr. Hale on unit turned PT on CPAP at approximately 0830. PT appeared to be tolerating CPAP well. Dr. Hale told RN to try and titrate PT's sedation down. At 0830 the versed gtt was titrated to 6 mg/hr and the fentanyl gtt was titrated down to 75 mg/hr. At approximately 0940 RN titrated fentanyl gtt back up to 100 mg/hr and versed gtt up to 10 mg/hr. PT was thrashing his head back and forth, swinging his legs off the side of bed, and would not follow commands. PT appeared to have moderately improve with sedation titration. High fall precautions are in place. RN wll continue to monitor.
--- NOTE | 2019-11-15 11:08 | NUR ---
RN spoke with Sheila Zuniga, patient's spouse, at approximatey 1055 this morning. RN wanted to clarify that Sheila did not want all information relayed to her children who also have the passcode. Sheila stated, "yes, I said that last night because I didn't want my daughter to worry. Some things are harder to hear." RN verbalized understanding and told Sheila that it would be preferable if she was the designated contact for the PT and staff would not update her children. So information that she does not want passed on will not be. Sheila stated that would be okay and she would be the point of contact. She asked if the children could still call and speak with PT via speaker phone and RN stated that would be fine. RN also updated Sheila of PT's condition, telling her that PT is on CPAP mode and educated her on what that means, the PT went down for a chest and abdomen CT but results are pending, and that RN was unsuccessful in attempts to wean down sedation. She verbalized understanding. RN will continue to monitor.
--- NOTE | 2019-11-15 16:09 | NUR ---
RUBIO reviewed chart and spoke with nursing and attending physician. Pt remains in ICU. CPAP trials today. Pt had CT scan earlier today. RUBIO spoke with pt's , Sheila, via phone. Update provided. Pt's has asked to speak with physicians regarding plan of care and treatment plan. SW is following to assist as needed with discharge planning.
--- NOTE | 2019-11-15 18:06 | NUR ---
PT did not progress towards plan of care goals. Mentation has not improved. Sedation was unable to be titrated down. Versed at 8 mg/h, fentany at 100 mg/hr, and precedex at 1.4 mcs/kg. CT of chest and ABD performed today. Provider and RN gave family update. Plan on doing an MRI of spine tomorrow per neurologist. RN will continue to monitor.
--- NOTE | 2019-11-15 21:05 | NUR ---
SPOKE WITH (PETER FABIAN) ABOUT PATIENT PLAN FOR MRI TOMORROW. ATTEMPTED TO OBTAIN MRI CHECKLIST, STATED HER ALONG WITH CHILDREN WOULD NOT WANT PATIENT TO COMPLETE MRI TOMORROW DUE TO NOT WANTING TO MOVE PATIENT AND AGITATE HIM. STATED THEY WANTED PATIENT TO REST A DAY AND COMPLETE MRI ON TUESDAY. IT WAS EXPLAINED THAT THIS WILL DELAY PATIENT'S CARE IF TEST IS DELAYED. STATED SHE WILL CONTINUE WITH DECISION OF NOT WANTING PATIENT TO GO TO MRI TOMORROW AND THAT THE DOCTOR CAN CALL HER WITH ANY QUESTIONS. MRI CHECKLIST REMAINS INCOMPLETE. WILL CONTINUE TO MONITOR.
[2019-11-16] VITALS (21 sets, daily range): BP systolic 113–170; BP diastolic 52–85
[2019-11-16 04:25] LABS: HEMATOCRIT 35.4 % (42.0-52.0); HEMOGLOBIN 11.6 gm/dL (14.0-18.0); MCH 29.4 pg (26.0-34.0); MCHC 32.7 g/dL (28.0-37.0); MCV 89.9 fL (80.0-100.0); RBC 3.93 mil/uL (4.50-6.00); RDW 14.2 % (10.5-14.5); WBC 6.2 thou/uL (4.0-11.0)
[2019-11-16 05:00] LABS: CALCIUM 7.8 mg/dL (8.5-10.1); CREATININE 0.9 mg/dL (0.7-1.3); MAGNESIUM 2.3 mg/dL (1.8-2.4)
--- NOTE | 2019-11-16 07:57 | NUR ---
PATIENT ON MODERATE SEDATION, VERSED DRIP WEANED TO 4. ON VENTILATOR FIO2 40%. MULLINS PATIENT WITH GREATER THAN 30ML/HOUR OUTPUT. OG TUBE RESIDUAL CHECKS DECREASED THROUGHOUT THE NIGHT, 5ML CHECKED AT 0400. FAMILY UPDATED, NO SIGN OF ACUTE DISTRESS NOTED AT THIS TIME. WILL CONTINUE TO MONITOR.
--- NOTE | 2019-11-16 10:58 | NUR ---
Nutrition: REC order reglan due to prior high residuals/TF hold. Resume Vital HP. New recommended goal rate if 65 mL/hr now that propofol D/C and beneprotein powder no longer needed.
--- NOTE | 2019-11-16 16:26 | NUR ---
SW reviewed chart and spoke with attending physician. Pt remains in ICU. CPAP trials continue. Pt to have MRI of spine. SW spoke with pt's via phone to provide update. Pt's requests to speak with the cloth stock sorter and ID physician. Pt's has also reached out to pt's PCP, Dr. Hernández. No weekend discharge planned. SW contacted pulm and ID to request follow up with pt's . SW is following to assist as needed with discharge planning.
--- NOTE | 2019-11-16 18:46 | NUR ---
nurse updated patient throughout the day. Nurse held phone to patients wear so she could talk to him. Her questions were answered. Nurse talked with Dr. Harrison in regards to Dr. Ross concerns. Dr. Harrison then talked with Dr. Hale in regards to plan of care and treatments. Plan is for no weaning today, continue gtts for ventilator management, will adjust scheduled medications, and titrate gtts as able. Patient not progressing towards plan of care as evidenced by continued need of sedation for vent managment.
[2019-11-17] VITALS (26 sets, daily range): BP systolic 107–177; BP diastolic 51–85
--- NOTE | 2019-11-17 04:45 | NUR ---
PATIENT ON SEDATION (VERSED, FENTANY, PRECEDEX) ATTEMPTED TO DECREASE VERSED BUT PATIENT WAS THRASHING HIS HEAD AND MOVING LEGS IN THE BED. ON VENTILATOR 40% FIO2, O2 SAT REMAINED GREATER THAN 90%. PATIENT SINUS TACHYCARDIA ON METAL MOVER. MULLINS PATENT AND GREATER THAN 30ML/HR. SPOKE WITH ABOUT PLAN OF CARE, WOULD LIKE TO SPEAK TO NEUROLOGY TEAM. NO SIGNIFICANT EVENTS THROUGHOUT THE NIGHT. WILL CONTINUE TO MONITOR.
[2019-11-17 05:18] LABS: BE(vivo) -0.1 mmol/L (-2 to +3); HCO3 23.7 mmol/L (22.0-26.0); PCO2 36.1 mmHg (35.0-45.0); pH 7.436 (7.360-7.450); sO2 94.7 % (92.0-98.0)
[2019-11-17 06:09] LABS: BASOPHILS 0.8 % (0.0-2.0); HEMATOCRIT 37.4 % (42.0-52.0); HEMOGLOBIN 12.5 gm/dL (14.0-18.0); LYMPHOCYTES 12.1 % (24.0-44.0); MCH 29.9 pg (26.0-34.0); MCHC 33.4 g/dL (28.0-37.0); MCV 89.6 fL (80.0-100.0); MONOCYTES 6.1 % (1.0-8.0); PLATELET COUNT 320 thou/uL (150-400); RBC 4.18 mil/uL (4.50-6.00); RDW 14.5 % (10.5-14.5); WBC 7.6 thou/uL (4.0-11.0)
[2019-11-17 06:42] LABS: CREATININE 0.9 mg/dL (0.7-1.3); MAGNESIUM 2.4 mg/dL (1.8-2.4); PHOSPHORUS 3.1 mg/dL (2.5-4.9); POTASSIUM 4.1 mmol/L (3.5-5.1); TOTAL BILIRUBIN 0.6 mg/dL (0.2-1.0); TOTAL PROTEIN 5.5 g/dL (6.4-8.2)
--- NOTE | 2019-11-17 09:36 | NUR ---
ASSUMED CARE AT 0700, CHRISTINE SIGNS AND ASSESSMENT COMPLETED PER ICU PROTOCOL. PT'S , CHELSEA, CALLED RN, UPDATE PROVIDED. EXPRESSED THAT HER CHILDREN WILL BE CALLING AND CHECKING ON PT WELL.
[2019-11-17 13:19] LABS: BE(vivo) -9.1 mmol/L (-2 to +3); HCO3 14.3 mmol/L (22.0-26.0); PCO2 24.9 mmHg (35.0-45.0); PO2 91.5 mmHg (80.0-100.0); pH 7.378 (7.360-7.450)
[2019-11-17 15:40] LABS: URINE BILIRUBIN NEGATIVE (Negative); URINE BLOOD 1+ (Negative); URINE CLARITY CLEAR; URINE COLOR YELLOW; URINE GLUCOSE-RANDOM* NEGATIVE (Negative); URINE KETONES 1+ (Negative); URINE LEUKOCYTES-REFLEX NEGATIVE (Negative); URINE NITRITE-REFLEX NEGATIVE (Negative); URINE PROTEIN (DIPSTICK) NEGATIVE (Negative); URINE SPECIFIC GRAVITY 1.025 (1.005-1.035); URINE UROBILINOGEN 0.2 E.U./dl (0.2-1.0)
[2019-11-17 15:51] LABS: MUCUS 0-3 Light strn/LPF (None Seen); SQUAMOUS 0-3 Few /LPF (0-3)
[2019-11-17 15:52] LABS: BACTERIA-REFLEX None Seen /HPF (None Seen); CASTS None Seen /LPF (None Seen); CRYSTALS None Seen /LPF (None Seen); URINE RBC 3-10 Few /HPF (0-2); URINE WBC-REFLEX 0-5 Rare /HPF (0-5)
[2019-11-18] VITALS (23 sets, daily range): BP systolic 108–142; BP diastolic 52–69
[2019-11-18 04:57] LABS: HEMATOCRIT 35.5 % (42.0-52.0); HEMOGLOBIN 11.7 gm/dL (14.0-18.0); MCH 29.9 pg (26.0-34.0); MCHC 33.1 g/dL (28.0-37.0); MCV 90.4 fL (80.0-100.0); RBC 3.93 mil/uL (4.50-6.00); RDW 14.6 % (10.5-14.5); WBC 6.9 thou/uL (4.0-11.0)
[2019-11-18 05:06] LABS: CALCIUM 7.8 mg/dL (8.5-10.1); CREATININE 0.9 mg/dL (0.7-1.3); MAGNESIUM 2.2 mg/dL (1.8-2.4); POTASSIUM 3.6 mmol/L (3.5-5.1)
--- NOTE | 2019-11-18 09:40 | NUR ---
UPDATED FAMILY ON PT CONDITION.
--- NOTE | 2019-11-18 13:36 | NUR ---
VERSED OFF, PT IS NOW MOVING ARMS A BIT, PT ARCHING SHOULDERS BACK AND SLIGHTLY PUSHING HANDS INTO BED.
--- NOTE | 2019-11-18 18:01 | NUR ---
BARRIER CREAM APPLIED TO PT CAMDEN AREA AND MULLINS CARE DONE. PT HAS REDNESS IN CAMDEN AREA.
--- NOTE | 2019-11-18 21:00 | NUR ---
PT FOLLOWING COMMANDS IN ALL FOUR QUESTIONS. PT NODDING HIS HEAD TO QUESTIONS. PT TRYING TO LIFT HIS UPPER BODY, MOTIONING TO EXIT THE BED. PT COUGHING OVER THE VENT. DR KELLEY NOTIFIED ABOUT THE SITUATION. GAVE AN ORDER TO RESTART VERSED AT LOW DOSE OF 3-4 MG/HR.
--- NOTE | 2019-11-18 22:30 | NUR ---
PT STILL NOT CALM AT 4MG/HR VERSED DRIP AND 1.[address] ANDRES NOTIFIED ABOUT THE SITUATION. GAVE AN ORDER FOR ONE TIME FENTANYL, VERSED AND PROPOFOL TO KEEP PT CALM OVER THE NIGHT.
[2019-11-19] VITALS (24 sets, daily range): BP systolic 90–139; BP diastolic 34–64
[2019-11-19 05:19] LABS: HEMATOCRIT 31.1 % (42.0-52.0); HEMOGLOBIN 10.4 gm/dL (14.0-18.0); MCH 30.2 pg (26.0-34.0); MCHC 33.4 g/dL (28.0-37.0); MCV 90.3 fL (80.0-100.0); RBC 3.44 mil/uL (4.50-6.00); RDW 14.6 % (10.5-14.5); WBC 4.6 thou/uL (4.0-11.0)
[2019-11-19 05:27] LABS: CALCIUM 7.7 mg/dL (8.5-10.1); CREATININE 0.7 mg/dL (0.7-1.3); POTASSIUM 3.1 mmol/L (3.5-5.1)
--- NOTE | 2019-11-19 07:09 | NUR ---
PT FOLLOWING COMMANDS. UPDATED ON PT SITUTAION. MRI INFORMATION OBTAINED FROM LAST NIGHT. PT ON PRECEDEX, PROFOFOL AND VERSED DUE TO RESTLESS ACTIVITY. PLAN FOR MRI OF SPINE TODAY. CHART CHECK. REPORT GIVEN TO ONCOMING RN SADI. CONTINUE TO MONITOR.
--- NOTE | 2019-11-19 11:00 | NUR ---
CHELSEA FABIAN, INQUIRED REGARDING PT STATUS, UPDATED. PT MOVING ALL EXTREMITIES TO COMMAND ALTHOUGH SEDATION INCREASED TO KEEP PT SAFE SINCE PT RESTLESS IN BED. VERBALIZED UNDERSTANDING.
--- NOTE | 2019-11-19 16:09 | NUR ---
SW reviewed chart and spoke with attending physician. Pt remains in ICU and intubated. Pt to have MRI of the spine today. Will need therapy evals when able to participate. RUBIO is following to assist as needed.
[2019-11-20] VITALS (24 sets, daily range): BP systolic 85–167; BP diastolic 40–73
[2019-11-20 03:49] LABS: CALCIUM 7.6 mg/dL (8.5-10.1); CREATININE 0.6 mg/dL (0.7-1.3); POTASSIUM 3.4 mmol/L (3.5-5.1)
--- NOTE | 2019-11-20 06:29 | NUR ---
ASSUMED CARE OF PATIENT AT 1900. VSS, AFEBRILE. IV SEDATION MEDS TITRATED CHARTED. BECOMES RESTLESS EASILY. NO S/S OF DISTRESS. WORKING TOWARDS POC GOALS.
--- NOTE | 2019-11-20 10:17 | NUR ---
Nutrition: If able to D/C propofol rec increase tube feeds to 65 mL/hr and beneprotein. Otherwise continue current regimen.
--- NOTE | 2019-11-20 11:15 | NUR ---
to mri per cart on vent and monitoring tech accompanied by Heber, and transporters. during mri pt very restless despite versed 2mg iv given x 6. call placed to Dr. Hardy to obtain additional sedation. fentanyl 50 mcg given x 2 and morphine total of 8 mg given. upon return to icu, pt restless, red in the face, Heber RT increased fio2 to 100% per vent, head of cart elevated. no improvement. when returned to room precedex, propofol and versed restarted as soon as possible. with sedation pt slowly improved from red in face, restless to calm. pt not following commands, not tracking with eyes.
--- NOTE | 2019-11-20 14:00 | NUR ---
pt's sister inquired regarding pt status. no update given, she talked on the phone with her brother for three minutes. pt sedated when call received, no change or response to her voice or conversation.
[2019-11-20 19:30] LABS: APTT 29.6 Seconds (24.5-32.8); INR 1.1; PROTIME 10.8 Seconds (9.3-11.4)
[2019-11-21] VITALS (53 sets, daily range): BP systolic 89–146; BP diastolic 40–67
--- NOTE | 2019-11-21 01:40 | NUR ---
ASSUMED CARE OF PATIENT AT 1900. VSS. PATIENT RESTLESS, SEDATION MEDS TITRATED PER EMAR. RAMIRO CALLED, POC DISCUSSED. STATES SHE WANTS PATIENT TO HAVE PEG AND TRACH IF NECESSARY. WOULD LIKE TO FACETIME TO SEE PATIENT. WILL TALK WITH DAYSHIFT RN ABOUT THIS. PT NPO AFTER MIDNIGHT.
[2019-11-21 04:58] LABS: CALCIUM 7.4 mg/dL (8.5-10.1); CREATININE 0.7 mg/dL (0.7-1.3); MAGNESIUM 1.9 mg/dL (1.8-2.4); POTASSIUM 3.9 mmol/L (3.5-5.1)
[2019-11-21 05:14] LABS: HEMATOCRIT 31.3 % (42.0-52.0); HEMOGLOBIN 10.3 gm/dL (14.0-18.0); MCH 29.9 pg (26.0-34.0); MCV 90.5 fL (80.0-100.0); RBC 3.46 mil/uL (4.50-6.00); RDW 14.8 % (10.5-14.5); WBC 5.2 thou/uL (4.0-11.0)
--- NOTE | 2019-11-21 11:25 | NUR ---
ABOUT 929, CHELSEA RUI, INQUIRED AND WANTED TO SKYPE WITH HER . SHE WAS GOING TO HER DAUGHTER'S, THEN SHE WOULD CALL WHEN AVAILABLE FOR SKYPE. RN DISCOVERED PHONE WITH PT BELONGING, PHONE CHARGED AND WAITING FOR HER RETURN CALL. OR CREW PRESENT TO TRANSPORT PT TO SURGERY PER ICU BED. CALL PLACED TO TO OBTAIN TELEPHONE CONSENT FOR TRACH/PEG PLACEMENT. CONSENT OBTAINED. VERBALIZED SHE WAS WAITING FOR CALL FROM HOSPITAL TO INITIATE A SKYPE VISIT PRIOR TO GOING TO SURGERY. RN EXPLAINED OR CREW IS PRESENT AND READY TO TRANSFER TO SURGERY. VERBALIZED, "WE WILL HAVE TO DO IT ON ANOTHER DAY". RN APOLOGIZED FOR MISUNDERSTANDING REGARDING 'WHO WAS TO CALL WHOM' AND FOR HER NOT BEING ABLE TO SKYPE PRIOR TO SURGERY. VERBALIZED SHE SPOKE WITH DR. UA PRIOR TO SURGERY, SHE STATED "I DIDN'T EXPECT THE CALL HOWEVER I SURE APPRECIATED IT".
--- NOTE | 2019-11-21 13:04 | NUR ---
returned on bed with cardiac catheterization technologist from surgery with OR crew. Shiley trach 8.0 placed, severo sutures intact, no drainage. peg tube 24 fr placed, intact, no drainage with abdominal binder intact. replaced on vent.
--- NOTE | 2019-11-21 16:11 | NUR ---
SW reviewed chart and spoke with attending physician. Pt remains in ICU and intubated. Pt to have trach and peg tube placed today. SW to follow up with pt's tomorrow regarding discharge plan: LTAC placement ([facility] are in-network with pt's insurance per LTAC liaisons). SW is following to assist as needed with discharge planning.
--- NOTE | 2019-11-21 18:00 | NUR ---
CHELSEA FABIAN, INQUIRED REGARDING PT STATUS. UPDATED ON STATUS INCLUDING GENERALLY BEING CALMER WITH THE ETT TUBE OUT & TRACH PRESENT. SLIGHTLY DECREASING SEDATION, ALTHOUGH HE STILL HAS A SIGNIFICANT AMOUNT OF SEDATION. HE WILL NEED TO REMAIN ON THE VENT UNTIL THE SEDATION IS DECREASED AND/OR COMPLETELY OFF. THEN HE NEEDS TO BE CALM, COOPERATIVE TO PREVENT HARM TO HIMSELF AND HE NEEDS TO BE ABLE TO BREATH WITHOUT DISTRESS. DISCUSSED THIS PROCESS WOULD TAKE DAYS. DID RESPOND TO VISUAL THREAT WHICH IS AN IMPROVEMENT, HOWEVER UNABLE TO TRACK WITH HIS EYES. INFORMED PEG TUBE AND ABDOMINAL BINDER TO KEEP THE TUBE IN PLACE. SEVERAL QUESTIONS & ALL QUESTIONS ANSWERED TO SATISFACTION. AGAIN APOLOGIZED FOR HER NOT HAVING THE OPPORTUNITY TO SKYPE PRIOR TO HIS TRACH/PEG. RN OFFERED TO SKYPE OR FACE TIME. SHE DECLINED AT THIS TIME. STATES SHE NEEDS TO BE AT HER DAUGHTER'S HOME FOR THIS TYPE OF COMMUNICATION. RN PUT THE PHONE TO THE PT'S EAR, SHE SPOKE TO HIM ON THE PHONE FOR AT LEAST TEN MINUTES.
[2019-11-22] VITALS (26 sets, daily range): BP systolic 112–145; BP diastolic 44–63
--- NOTE | 2019-11-22 03:57 | NUR ---
ASSUMED CARE OF PATIENT AT 1900. PATIENT FAMILY CALLED, ABLE TO VIDEO CONFERENCE ON PATIENT CELL PHONE. THEY WERE ABLE TO TALK TO HIM FOR ABOUT 3 MINUTES, CELL PHONE AT BEDSIDE. RESTLESS THROUGH THE NIGHT, TURNING AND TWISTING HEAD. MEDS TITRATED TO KEEP CALM. WORKING TOWARDS POC GOALS.
[2019-11-22 06:20] LABS: CALCIUM 7.8 mg/dL (8.5-10.1); CREATININE 0.6 mg/dL (0.7-1.3); POTASSIUM 3.9 mmol/L (3.5-5.1)
--- NOTE | 2019-11-22 08:35 | NUR ---
RN assumed care at 0700. PT appeared calm and lightly sedated. Propofol was titrated off at 0750. Versed gtt was running at 4mg/h and precedex running was running at 1.4 mcg/kg/h. PT became restless, thrashing his head back and forth and moving his legs back and forth. VSS. RN turned propofol gtt back on at approximately 0815 at 25 mcg/kg/min. Tube feeds were held initially due to gastric residual of [address] Mac on unit okayed for RN to re-start tube feeds and to call if residual is greater than 300 mls. RN verbalized understanding. Abdominal binder in place. Restraints intact. High fall precautions in place. RN will continue to monitor.
--- NOTE | 2019-11-22 15:45 | NUR ---
SW reviewed chart and spoke with attending physician. Pt is s/p trach/peg placement. Tube feedings started. Attending physician to speak with pt's to discuss discharge plan: LTAC placement. SW spoke with pt's via phone to provide update. Pt's states that she is thankful for being able to facetime pt. SW to discuss LTAC placement after physician has spoken with pt's . SW is following to assist as needed with discharge planning.
--- NOTE | 2019-11-22 16:15 | NUR ---
, Lyssa Zuniga, called and arranged a time with RN to facetime with PT. Lyssa called at 1400 and face timed using PT's personal phone for approximately 15 minutes. Spouse was also given an update on PT's condition at this time. PT did not respond to his lab support tech. Will continue to monitor.
[2019-11-23] VITALS (60 sets, daily range): BP systolic 90–148; BP diastolic 41–864
--- NOTE | 2019-11-23 05:36 | NUR ---
continues on the same ventilator settings. continues on tube feeding. area around the peg tube site is sutured, unable to place a dressing under, no drainage noted, but it is tight against the skin. continues on the versed and propofol and precedex to keep him in control, and lightly sedated. he opens his eyes when touched and spoken to at times. he he a distressed look on his face earlier in the evening, gave he some tylenol and he settled down and relaxed.
[2019-11-23 06:31] LABS: CALCIUM 7.9 mg/dL (8.5-10.1); CREATININE 0.7 mg/dL (0.7-1.3); POTASSIUM 3.8 mmol/L (3.5-5.1)
--- NOTE | 2019-11-23 07:31 | NUR ---
Assumed care at 0700, assessment and vital signs completed per ICU protocol. Dr. Hardy paged and notified of hypotension, new orders received. RN will continue to monitor.
[2019-11-23 07:47] LABS: HEMATOCRIT 32.8 % (42.0-52.0); MCH 30.4 pg (26.0-34.0); MCHC 33.4 g/dL (28.0-37.0); MCV 90.8 fL (80.0-100.0); RBC 3.61 mil/uL (4.50-6.00); RDW 15.3 % (10.5-14.5); WBC 6.8 thou/uL (4.0-11.0)
--- NOTE | 2019-11-23 12:54 | NUR ---
WOUND CARE CONSULT; THHE GROIN AREA WAS ASSESSED. BROWNISH PURPLE SKIN CHANGES NOT MOIST. WITH WHITE,DRY SKIN CHANGES WITHIN. I AM SUSPICIOUS OF A DIFFERENT ETIOLOGY. FOR NOW I RECOMMEND ANTIFUNGAL BARRIER CREAM. DISCUSSED WITH FABRICIO
--- NOTE | 2019-11-23 14:19 | NUR ---
SW reviewed chart and spoke with attending physician. Pt is s/p trach/peg placement. Vent weaning trials continue. No weekend discharge planned. Attending physician has left voice messages for pt to discuss plan of care. SW is following to assist as needed with discharge planning.
[2019-11-23 23:09] LABS: MAGNESIUM 1.9 mg/dL (1.8-2.4); POTASSIUM 3.6 mmol/L (3.5-5.1)
[2019-11-24] VITALS (37 sets, daily range): BP systolic 112–144; BP diastolic 55–75
[2019-11-24 05:48] LABS: CALCIUM 7.9 mg/dL (8.5-10.1); CREATININE 0.7 mg/dL (0.7-1.3); POTASSIUM 3.8 mmol/L (3.5-5.1)
--- NOTE | 2019-11-24 07:08 | NUR ---
PT MAKING SLOW PROGRESS TOWARDS GOALS. UPON INITIAL ASSESSMENT PT WOULD OPEN HIS EYES TO VOICE, WOULD LOOK AT THIS RN WITH FURROWED EYE BROWS THEN TURN HIS HEAD TO THE RIGHT AND CLOSE HIS EYES. DID SQUEEZE BOTH MY HANDS UPON COMMAND. HE IS MOVING ALL EXTREMITIES. INITIAL RATE OF VERSED WAS 4MG/HR. INCREASED TO 6MG/HR SINCE HAD INCREASING RESTLESSNESS. MAINTAINED AT 6MG/HR THROUGHOUT THE NIGHT WITH PT REMAINING MIDLY RESTLESS. ONE EPISODE OF VOMITING (YELLOW COLORED LIQUID, SMALL AMOUNT). NOTED HYPEREXPANSION OF FECALT TUBE AND BAG SUSPECTING GAS. BAG DOES HAVE A SMALL AMOUNT OF BROWN LIQUID IN IT. KUB ORDERED BY HUMAN RESOURCES ADMIN WITH RESULTS OF GASEOUS DISTENTION. SPOKE WITH HUMAN RESOURCES ADMIN, X2 SIMETHCONE ORDERED AND GIVEN. FECAL TUBE/BAG BURPED X2 OVERNIGHT. TUBE FEEDS TO REMAIN OFF UNTIL EVAL BY PRIMARY TEAM TODAY.
--- NOTE | 2019-11-24 23:40 | NUR ---
UPON INITIAL ASSESSMENT, PT WAS VERY RESTLESS AND MOVING LEGS IN THE BED. PT WAS ABLE TO FOLLOW SIMPLE COMMANDS AND NOD HIS HEAD YES/NO TO SIMPLE QUESTIONS. WHEN PT IS LESS RESTLESS, HE IS ABLE TO MAKE EYE CONTACT WITH NURSE AND APPEARS TO UNDERSTAND WHAT IS BEING SAID. HOWEVER, WHEN HE IS MORE RESTLESS AND AGITATED, HE STARES OFF IN TO THE ROOM AND BLINKS IF HE IS LOOKING AT SOMETHING. PT DID ATTEMPT TO TALK OVER THE TRACH, BUT ONLY AUDIBLE NOISES WERE HEARD. HALDOL AND SEROQUEL GIVEN TO HELP WITH RESTLESSNESS. MINIMAL IMPROVEMENT NOTED. PT REMAINS ON PRECEDEX GTT. THIS RN SPOKE WITH PT'S AROUND 2144. SHE WAS UPDATED ON PT NEURO STATUS AND POC. FMS REMOVED PT HAD VERY MINIMAL OUTPUT FROM FMS AND HE NODDED YES WHEN ASKED IF THE FMS WAS CAUSING HIM TO FEEL MORE UNCOMFORTABLE. COMPLETE BED BATH GIVEN. PT NOW RESTING IN BED WITH EYES CLOSED. HE OCCASSIONALLY HAS RESTLESS LEGS, BUT AGITATION HAS IMPROVED OVERALL. PROGRESSING SLOWLY TOWARD POC GOALS SINCE HIS NEURO STATUS AND RESPONSIVENESS ARE IMPROVING. WILL CONTINUE TO MONITOR FURTHER.
[2019-11-25] VITALS (25 sets, daily range): BP systolic 121–169; BP diastolic 53–128
--- NOTE | 2019-11-25 05:00 | NUR ---
AROUND MIDNIGHT, PT WAS GIVEN ANOTHER DOSE OF HALDOL FOR RESTLESSNESS/AGITATION, HE KEPT SLIDING DOWN IN BED AND KICKING HIS LEFT LEG OVER THE SIDE RAIL. AFTER HALDOL WAS GIVEN, PT HAS BEEN SLEEPING AND RESTING CALMLY IN BED. PT REMAINS IN BILATERAL WRIST RESTRAINTS. PT HAS BEEN AFEBRILE ALL NIGHT. TOLERATING VENT SETTINGS WELL. MODERATE AMOUNT OF SECRETIONS FROM TRACH. ORAL CARE PROVIDED. FALL PRECAUTIONS IN PLACE. PROGRESSING SLOWLY TOWARD POC GOALS.
[2019-11-25 05:25] LABS: CALCIUM 8.1 mg/dL (8.5-10.1); CREATININE 0.6 mg/dL (0.7-1.3); POTASSIUM 3.3 mmol/L (3.5-5.1)
--- NOTE | 2019-11-25 08:37 | NUR ---
ASSESSMENTS AND INTERVENTIONS DOCCUMENTED. PATIENT PLACED ON CPAP MODE AROUND 0745, PER RT. PATIENT TOLERATING IT WELL. PATIENT APPROPRIATE AND FOLLOWING COMMANDS AT THIS TIME.
--- NOTE | 2019-11-25 22:12 | NUR ---
2146 - SPOKE WITH PT'S . UPDATED ON PT AND POC.
[2019-11-26] VITALS (22 sets, daily range): BP systolic 109–156; BP diastolic 53–76
--- NOTE | 2019-11-26 03:11 | NUR ---
PT HAS BEEN MORE CALM AND COOPERATIVE THIS SHIFT, COMPARED TO PREVIOUS LEGGER PRESS OPERATOR. HE REMAINS IN BILATERAL SOFT WRIST RESTRAINTS HE STILL HAS SOME PERIODS OF RESTLESSNESS AND IS FORGETFUL, SLIDING DOWN IN THE BED AND COMPROMISING HIS VENT TUBING AND TRACH. PT IS ABLE TO FOLLOW SIMPLE COMMANDS. NODS HEAD "NO" WHEN ASKED IF HE HAS ANY PAIN. COMPLETE BED BATH GIVEN. GASTRIC TUBE TO DD. PT WAS ON TRACH MASK AT 35% WHILE AWAKE. RT PLACED PT ON VENT AROUND 2345. PT HAS BEEN SLEEPING MOST OF THE NIGHT SINCE BEING PLACED ON VENT. RESPIRATIONS EVEN AND UNLABORED. ORAL CARE PROVIDED. FALL PRECAUTIONS IN PLACE. PROGRESSING TOWARD POC GOALS.
[2019-11-26 05:13] LABS: CALCIUM 7.7 mg/dL (8.5-10.1); CREATININE 0.7 mg/dL (0.7-1.3); POTASSIUM 3.5 mmol/L (3.5-5.1)
--- NOTE | 2019-11-26 10:20 | NUR ---
ASSUMED CARE AT 0700, ASSESSMENT AND VITAL SIGNS COMPLETED PER ICU PROTOCOL. DR. ALEJANDRA SALDIVAR AND RN DISCUSSED PLAN OF CARE, NEW ORDERS RECEIVED. JOSHUA WITH CASE MANAGEMENT PAGED AND NOTIFIED OF DR. ROBERTS'S SUGGESTION OF DISCHARGING TO LTAC. RN WILL CONTINUE TO MONITOR.
[2019-11-26 10:26] LABS: URINE BLOOD NEGATIVE (Negative); URINE CLARITY CLEAR; URINE COLOR YELLOW; URINE GLUCOSE-RANDOM* NEGATIVE (Negative); URINE KETONES 3+ (Negative); URINE LEUKOCYTES NEGATIVE (Negative); URINE NITRITE NEGATIVE (Negative); URINE PROTEIN (DIPSTICK) NEGATIVE (Negative); URINE SPECIFIC GRAVITY 1.025 (1.005-1.035); URINE UROBILINOGEN 0.2 E.U./dl (0.2-1.0)
--- NOTE | 2019-11-26 10:26 | NUR ---
Nutrition: REC increase tube feeds as tolerated to goal rate of 65 mL/hr now that propofol is D/C'ed. Beneprotein powder no longer needed.
[2019-11-26 10:28] LABS: ICTOTEST (BILI CONFIRMATORY) Negative (Negative); URINE BILIRUBIN NEGATIVE (Negative)
[2019-11-26 10:34] LABS: URINE REDUCING SUBSTANCE NEGATIVE
--- NOTE | 2019-11-26 11:57 | NUR ---
WOUND CARE F/U; THE GROIN RASH WAS ASSESSED ON 11/23/19 AND ANTIFUNGAL BARRIER CREAM WAS ORDERED. OVER THE WEEKEND NYSTATIN WAS ADDED BY THE PCP. THE RASH SHOWS GREAT IMPROVEMENT. WILL D/C FROM WOUND CARE AT THIS TIME. DISCUSSED WITH FABRICIO
[2019-11-26 12:01] LABS: SGOT 26 U/L (15-37); SGPT 29 U/L (30-65)
--- NOTE | 2019-11-26 12:24 | NUR ---
cont dcp, discussed during los, possible ready 24-48 hr ltac. nicol called to discuss with pt dottie. she stated "oh, i thought he would be going to skilled rehab before coming home and no one has discussed this with me. just little surprise if could have dr call me please"/dottie. nicol education on [facility] with there location " oh that is to far, can they have visitor yet?"/. education that cm would have liaison call her from [facility] to provide more education. referral to be sent to [facility]. will cont following as needed for dc needs. will need auth from [facility]. nicol sent message to MD to call pt .
--- NOTE | 2019-11-26 14:01 | NUR ---
FAXED REFERRAL TO [facility] SPOKE WITH PEARL IN ADM SHE RECEIVED REFERRAL AND WILL REVIEW AND CALL PT'S . FAXED REFERRAL TO [facility] SPOKE WITH AIYAAN IN ADM SHE RECEIVED REFERRAL AND WILL REVIEW. ANTICIPATE DC 24-48 HRS. DP TO FOLLOW.
[2019-11-27] VITALS (23 sets, daily range): BP systolic 126–175; BP diastolic 50–82
[2019-11-27 05:54] LABS: CALCIUM 7.4 mg/dL (8.5-10.1); CREATININE 0.7 mg/dL (0.7-1.3); POTASSIUM 3.6 mmol/L (3.5-5.1)
--- NOTE | 2019-11-27 06:27 | NUR ---
OVERNIGHT PT WAS VERY RESTLESS, TRYING TO ROLL OUT OF BED. SERQUEL PRN, HALIDOL PRN GIVEN X1. ASKED PT IF HE WAS HURTING, HE NODDED YES ALSO INQUIRED ABOUT NAUSEA AGAIN A NOD. GAVE IV PAIN MEDICATION AND ZOFRAN AND PT HAS BEEN RESTING COMFORTABLY SINCE. FOLLOWING POC WITH PRECEDEX GTT. NEW STAT LOCK FOR MULLINS IN PLACE ON LEFT THIGH. RESTRAINTS IN PLACE TO KEEP PT FROM PULLING AT EQUIPMENT AND TO KEEP IN THE BED. PT REQUIRES FREQUENT SUCTIONING. SPOKE TO OF PT AT 2100. POTASSIUM REDRAW AT 1930 CAME BACK 3.5. CALLED MASS SPECTROMETRY MANAGER AND GOT ORDERS FOR 1/2NS WITH 20MEQ. AWAITING AM LAB RESULTS.
--- NOTE | 2019-11-27 08:38 | EKG ---
[facility] [place] [address] ELECTROCARDIOGRAM REPORT Name: THOMAS FABIAN Room #: 243-P ADM IN M.R.#: [id number] Admission: 11/06/19 Attend Phys: Barak Joyner MD Discharge: Date of : 43 Report #: [id number] THIS REPORT FOR: cc: Alex Hernández MD, Rene P. MD Lundgren,Javy Modi MD [facility] ~ THIS REPORT FOR: //name// [facility] Test Date: 2019-11-26 Test Time: 09:13:19 Pat Name: THOMAS FABIAN Department: Room: 243 Gender: M Communications Associate: ZULLY : 1945 Requested By: Yemi Vaz Order Number: [id number] MD: Javy Manzo Measurements Intervals [place] Rate: 60 P: -40 VT: 258 QRS: -52 QRSD: 114 T: 20 QT: 466 QTc: 466 Interpretive Statements Sinus rhythm Ventricular premature complex Prolonged VT interval Borderline IVCD with LAD Abnormal R-wave progression, early transition Inferior infarct, old Compared to ECG 11/13/2019 10:28:16 Ventricular premature complex(es) now present Electronically Signed On 11-27-2019 8:37:21 CDT by Javy Manzo [email or web address] <ELECTRONICALLY SIGNED> By: Javy Manzo MD, [facility] 11/27/19 0837 2 2 Javy Manzo MD, [facility] /EPI
--- NOTE | 2019-11-27 10:32 | NUR ---
cm spoke with pt annelise via phone call, she stated " insurance is what it is [facility] will be fine, would like her to call me, have more questions. someone let me know when and time he will be living"/. cm passed on information to have [facility] liaison bobbi call her. provied nice words about the great communication with pulmonolgist working with gertrude, and dr cadena. updates to be sent to [facility] and cc requested,
--- NOTE | 2019-11-27 10:47 | NUR ---
PEARL FROM [facility] WAS NEEDING UPDATE ON PT'S TF AND MEDICATION LIST FAXED INFO RECEIVED CONFIRMATION.
--- NOTE | 2019-11-27 14:05 | NUR ---
[id number]- Patient sat in chair. Got to chair with assistance of RN and OT. Then got back to bed with PT and RN. He sat in the chair safely today. Use of the lap belt helped him stay upright then entire time.
--- NOTE | 2019-11-27 16:41 | NUR ---
7115- Nurse held phone up to patients ear so his could speak with him. Patient expressed he would like his glasses, so nurse relayed the message and she is bringing his glasses. He has been resltess this afternoon, however appears to be started by his need for a bowel movement. He has been quite redirectable today. He worked with PT and OT and sat in the chair, calmly, from [id number] today. PT and RN helped him back to bed. He attempted to write, however he is not strong enough to hold the pen. Tube feeding infusing with minimal residuals. Iv fluids discontinued per MD order. Precedex titration occuring, goal is to turn off gtt. Cisneros catheter to be discontinued, per MD, ok to use condom catheter if needed. Nurse to continue to monitor patient status. He is progressing towards plan of care goals as evidenced by decreased restlessness, able to work with PT/OT, and appears to be comprehending teachings better today. Nurse to continue to monitor patient status.
--- NOTE | 2019-11-27 19:02 | NUR ---
Patient progressing towards plan of care as evidenced by increased comprehension of education and safety maintanence. He attempted to climb out of bed once today by leaning far over siderails. Bed alarm sounded and 2 RNs rushed into his room. Nurse provided reeducation. He had a bowel movement. This was his only attempt and he nodded yes that he wanted to use the bathroom. Close monitoring to be performed.
[2019-11-28] VITALS (16 sets, daily range): BP systolic 122–165; BP diastolic 53–76
--- NOTE | 2019-11-28 06:33 | NUR ---
SPOKE TO PT AT APPROX 2130 AND GAVE UPDATE. SHE IS EXPECTING TO BE HERE THIS AM. PT HAD MULTIPLE BM'S AND MULTIPLE BOUTS OF INCONTINENCE. 4X BED CHANGES. PRECEDEX DECREASED, PT BECAME MORE RESTLESS AND COUNTLESS ATTEMPTS TO GET OUT OF BED. AT ONE POINT PT WAS TRYING TO PULL IV POLE INTO THE BED. REDIRECTED AND MINUTES LATER ATTEMPTING TO GET TUBE FEEDING POLE INTO THE BED. ATTEMPTED EXTERNAL CATH AND PT REMOVED IT. FREQUENT SUCTIONING AND REDIRECTING PT. VSS, NO FEVER, TELE SHOWS SR WITH 1 DEGREE AVB, PVC, AND PACS AT DIFFERENT TIMES.
--- NOTE | 2019-11-28 13:45 | NUR ---
RUBIO reviewed chart and spoke with nursing and attending physician. Pt remains in ICU. Pt is currently on trach shield. Pt had trach/peg placed last week. [facility] has accepted pt and is working with insurance for authorization. RUBIO faxed updated clinical/therapy info to [facility] and discussed with liaison. Pt currently on precedex gtt. [facility] is able to manage precedex gtt if needed. RUBIO updated attending physician. Will eval for need of precedex gtt tomorrow. RBUIO spoke with pt's via phone to provide update. Pt's visited pt earlier today. Pt's is agreeable with plan for discharge to [facility] pending insurance authroization. RUBIO is following to assist as needed with discharge planning.
--- NOTE | 2019-11-28 14:37 | NUR ---
PT CONTINUES TO BE RESTLESS. DOES FOLLOW COMMANDS BUT CONSTANTLY NEEDS RE-DIRECTION. FEVER UP TO 101.2 THIS AFTERNOON, TYLENOL AND NON-PHARMACOLOGIC MEASURES USED INTERVENTIONS. MULLINS INSERTED DUE TO SKIN BREAKDOWN AND URINE RETENTION. PT HAD MULTIPLE SMALL BM'S TODAY. AT BEDSIDE, HER AND PT WERE UPDATED AND EDUCATED ON POC. PT UP TO CHAIR THIS AM. PT/OT BOTH WORKED WITH PT TODAY. SLOWLY PROGRESSING TOWARDS POC. WILL CONTINUE TO MONITOR.
[2019-11-29] VITALS (20 sets, daily range): BP systolic 97–165; BP diastolic 19–87
--- NOTE | 2019-11-29 12:41 | NUR ---
Nurse transfered care of patient to Francisco REGALADO. updated this am as she visited patient. Dr. Lozoya and Dr. Hardy talked with . Patient got up to chair around 1120 with OT and RN's. He is leaning more towards the left than previously noted. However, left side was weaker than right previous as well. Patient helped back to bed, per his request with assistance of RN and PT-Alexi. just left for a bit.
--- NOTE | 2019-11-29 13:01 | NUR ---
Assume care of patient at noon. He was sitting up on the chair stated he wanted to go back to bed. assist with to bed with help of therapy. New abdominal binder placed. PEG resumed. he is now sleeping. at bedside. will cont with plan of care.
[2019-11-29 13:25] LABS: URINE BILIRUBIN 1+ (Negative); URINE BLOOD TRACE (Negative); URINE CLARITY CLEAR; URINE COLOR YELLOW; URINE GLUCOSE-RANDOM* NEGATIVE (Negative); URINE KETONES 2+ (Negative); URINE LEUKOCYTES NEGATIVE (Negative); URINE NITRITE NEGATIVE (Negative); URINE PROTEIN (DIPSTICK) TRACE (Negative); URINE UROBILINOGEN 0.2 E.U./dl (0.2-1.0)
[2019-11-29 13:28] LABS: ICTOTEST (BILI CONFIRMATORY) Negative (Negative)
--- NOTE | 2019-11-29 13:44 | NUR ---
SW reviewed chart and spoke with nursing and attending physician. Pt is febrile today. Awaiting input from ID. Pt is not medically stable for discharge to [facility] today. SW provided update to [facility] liaison, who is working with pt's insurance for authorization. Pt on trach shield. RUBIO spoke with pt's via phone to provide update and discuss discharge plan. Pt's is aware and agreeable with plan. SW is following to assist as needed with discharge planning.
[2019-11-30] VITALS (35 sets, daily range): BP systolic 95–160; BP diastolic 48–87
[2019-11-30 05:04] LABS: ABSOLUTE NEUTROPHILS 6.9 thou/uL (1.4-8.2); EOSINOPHILS 4.1 % (0.0-3.0); HEMATOCRIT 41.3 % (42.0-52.0); HEMOGLOBIN 13.6 gm/dL (14.0-18.0); LYMPHOCYTES 18.2 % (24.0-44.0); MCH 29.8 pg (26.0-34.0); MCV 90.4 fL (80.0-100.0); MONOCYTES 11.2 % (1.0-8.0); PLATELET COUNT 292 thou/uL (150-400); POLYS 65.5 % (36.0-66.0); RBC 4.56 mil/uL (4.50-6.00); RDW 15.7 % (10.5-14.5); WBC 10.5 thou/uL (4.0-11.0)
[2019-11-30 05:52] LABS: CALCIUM 8.5 mg/dL (8.5-10.1); CREATININE 0.8 mg/dL (0.7-1.3); POTASSIUM 3.1 mmol/L (3.5-5.1)
--- NOTE | 2019-11-30 07:38 | NUR ---
Assumed care of pt at 1900. Pt noted to have gone into Afib RVR with some respiratory distress. O2 sats mid 80s with large amounts of sputum coming from trach, coarse breath sounds and wheezes throughout. Pt suctioned very frequently through the noc and now sounds much better. Medicated per EMAR for Afib and converted this morning at 0600 to NSR w/ PACS/PVCS. Cardiology at bedside at this time. Dr. Hardy also notified of possiblity of aspirating tube feeds as he frequently is down low in the bed and coughs hard to the point of gagging. TF placed on hold and IVF started per his orders. Pt seemed to be more calm this shift, redirectable and mouths words and follows simple commands. Pt. continued to run fever of around 100, medicated per EMAR. Spoke to patients re: changes and POC. See reassessments for further details. Slowly progressing towards goals.
--- NOTE | 2019-11-30 09:26 | NUR ---
assumed patient care at 0700. alert, follow commands. converted to nsr at 0700. suction as need. afebrile. resumed TF now at 35ml/hr. will keep moniotor,
--- NOTE | 2019-11-30 14:51 | NUR ---
RUBIO reviewed chart and spoke with nursing and attending physician. Pt went into a-fib last night. Cardiology consulted. Pt's tube feedings were held and restarted today. RUBIO notified by [facility] liaison that they have obtained authorization for pt to be admitted to LTAC. [facility] is able to accept pt over the weekend. RUBIO faxed ambulance form to nurses station to place on chart. RUBIO spoke with pt's via phone to provide update and notify of insurance authorizatino. Pt's is aware of possible weekend discharge. Pt's if pt's son could visit pt prior to discharge. If possible, pt's son would travel to from [place] to visit him. RUBIO contacted [facility] that pt's son could visit, as long as it is only one visitor at a time. Family would need to notify nursing staff to coordinate with [facility]. RUBIO updated pt's . Chart will need to be copied when discharged and finalized discharge orders/summary will need to be fax[facility] to [facility] up with nursing tomorrow to assist with coordination of discharge. RUBIO is available to assist as needed. [facility]-- [facility]--
[2019-12-01] VITALS (17 sets, daily range): BP systolic 113–147; BP diastolic 48–75
--- NOTE | 2019-12-01 06:21 | NUR ---
PT MAKING SLOW PROGRESS TOWARDS GOALS. UPON INITIAL ASSESSMENT PT MADE EYE CONTACT UPON HIS NAME BEING SPOKEN. DID MAKE A FIST WITH BOTH HANDS UPON COMMAND. HOWEVER PT DID NOT APPEAR TO ANSWER ANY YES/NO QUESTIONS. THIS AM, PT CONTINUED TO RESPOND THE SAME WAY WITH DIRECTIONS AND WHEN HIS NAME WAS SPOKEN. NOW, PT WAS ABLE TO SHAKE HIS HEAD YES (HEAD UP/DOWN) WHEN ASKED IF HIS NAME WAS THOMAS. WHEN ASKED IF HE WAS HAVING ANY PAIN HE SHOOK HIS HEAD NO (LEFT TO RIGHT). CONTINUE TO MONITOR.
--- NOTE | 2019-12-01 11:46 | EKG ---
[facility] [place] [address] ELECTROCARDIOGRAM REPORT Name: THOMAS FABIAN Room #: 243-P ADM IN M.R.#: [id number] Admission: 11/06/19 Attend Phys: Barak Joyner MD Discharge: Date of : 43 Report #: [id number] THIS REPORT FOR: cc: Alex Hernández MD, Rene P. MD Couchonnal, Luis F. 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[facility] : 1945 Requested By: Chetan Pang Order Number: [id number] MD: Jerry Patel Measurements Intervals [place] Rate: 122 P: [place]: QRS: -70 QRSD: 134 T: 105 QT: 350 QTc: 499 Interpretive Statements Atrial fibrillation Right bundle branch block Inferior infarct, old Lateral leads are also involved Baseline wander in lead(s) V2 Compared to ECG 11/26/2019 09:13:19 Electronically Signed On 12-01-2019 11:45:22 CDT by Jerry Patel [email or web address] <ELECTRONICALLY SIGNED> By: Jerry Patel MD 12/01/19 1145 26 26 Jerry Patel MD /EPI
--- NOTE | 2019-12-01 11:49 | EKG ---
[facility] [place] [address] ELECTROCARDIOGRAM REPORT Name: THOMAS FABIAN Room #: 243-P ADM IN M.R.#: [id number] Admission: 11/06/19 Attend Phys: Barak Joyner MD Discharge: Date of : 43 Report #: [id number] THIS REPORT FOR: cc: Alex Hernández MD, Rene P. MD Couchonnal, Luis F. 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
[2019-12-01] MEDS ORDERED: VALPROIC A250 MG/52 PER TUBE ×2 (13:38)
[2019-12-01] MEDS ORDERED: POTASSIUM20 MEQ/15 PER TUBE (13:38)
[2019-12-01] MEDS ORDERED: AKWA TEARS OIN3.5 GM OPHTHALMIC (13:38)
[2019-12-01] MEDS ORDERED: MUCINEX600 MG PO (13:38)
[2019-12-01] MEDS ORDERED: PEPCID20 MG PO (13:38)
[2019-12-01] MEDS ORDERED: ASPIR 8181 MG PO (13:38)
[2019-12-01] MEDS ORDERED: CEFUROXIME500 MG PO (13:38)
[2019-12-01] MEDS ORDERED: NYSTATIN15 G1 TOP (13:38)
[2019-12-01] MEDS ORDERED: PERCOCET PO (13:38)
[2019-12-01] MEDS ORDERED: SEROQUEL 25 MG25 M1 PER TUBE (13:38)
--- NOTE | 2019-12-01 15:48 | NUR ---
ASSUMED PATIENT CARE AT 0700. ALERT, RESTLESS AND CONFUSED. PATIENT FREQUENTLY PULLING LINES AND TRY TO OUT OF BED. TOLERATED TF AT GOALS RATE. NO RESIDUAL NOTED. LOWER GRADE TEMP. SUCTION NEED. AT BED SIDE.WILL DC TO [facility] AT 1730.
== END 2019-12-01 17:54 | DRG 4 ==
LOC: ER 23:31 → ICU 11-06 01:11 → 3W 11-06 01:11 → EROBS 11-06 01:11 → 3W 11-06 02:22 → ICU 11-06 20:57
PROVIDERS: Hospitalist; Internal Medicine; Internal Medicine Infectious Disease; Internal Medicine Pulmonary Disease; Nurse Practitioner Family; Pediatrics; Psychiatry & Neurology Neuromuscular Medicine; Psychiatry & Neurology Psychiatry; Specialist; ADMIT Hospitalist; ATTEND Hospitalist
DX: A41.9 Sepsis, unspecified organism (principal); J18.9 Pneumonia, unspecified organism; G92 Toxic encephalopathy; J96.21 Acute and chronic respiratory failure with hypoxia; N17.9 Acute kidney failure, unspecified; E87.0 Hyperosmolality and hypernatremia; R65.20 Severe sepsis without septic shock; R44.1 Visual hallucinations; E78.00 Pure hypercholesterolemia, unspecified; K21.9 Gastro-esophageal reflux disease without esophagitis; E78.5 Hyperlipidemia, unspecified; F32.9 Major depressive disorder, single episode, unspecified; G47.00 Insomnia, unspecified; Z20.828 Contact with and (suspected) exposure to other viral communicable diseases; R41.0 Disorientation, unspecified; N18.3 Chronic kidney disease, stage 3 (moderate); E87.6 Hypokalemia; B95.8 Unspecified staphylococcus as the cause of diseases classified elsewhere; R13.10 Dysphagia, unspecified; I48.91 Unspecified atrial fibrillation; Z90.49 Acquired absence of other specified parts of digestive tract; Z79.82 Long term (current) use of aspirin; Z87.891 Personal history of nicotine dependence; Z88.8 Allergy status to other drugs, medicaments and biological substances; Z79.899 Other long term (current) drug therapy
CPT/HCPCS: 10078; 50101; 50386; 50403; 50517; 56524; 56525; 56668; 62110; 62900

== ENCOUNTER 2020-02-24 13:47 | Emergency (ER) | payer OTHER ==
[~2020-02-24] VITALS: Ht 180.3 cm; Wt 108.9 kg
[~2020-02-24 13:47] MED LIST changes: +AKWA TEARS OIN3.5 GM OPHTHALMIC; +ASPIR 8181 MG PO; +CEFUROXIME500 MG PO; +DESYREL150 MG PO; +LIPITOR40 MG PO; +MUCINEX600 MG PO; +NYSTATIN15 G1 TOP; +PEPCID20 MG PO; +PERCOCET PO; +POTASSIUM20 MEQ/15 PER TUBE; +SEROQUEL 25 MG25 M1 PER TUBE; +VALPROIC A250 MG/52 PER TUBE; +VENLAFAXINE HCL75 M2 PO
[2020-02-24] MEDS ORDERED: CENTANY30 GM TOP (14:27)
[2020-02-24 14:34] VITALS: BP 142/68
== END 2020-02-24 14:35 | disposition home or self-care (01) ==
LOC: ER 13:47
DX: L92.9 Granulomatous disorder of the skin and subcutaneous tissue, unspecified (principal); K21.9 Gastro-esophageal reflux disease without esophagitis; E78.5 Hyperlipidemia, unspecified; Z90.49 Acquired absence of other specified parts of digestive tract; Z87.891 Personal history of nicotine dependence; Z79.82 Long term (current) use of aspirin; Z79.899 Other long term (current) drug therapy; Z88.1 Allergy status to other antibiotic agents

== ENCOUNTER → 2021-03-25 | Outpatient (CLI) | payer OTHER ==
[~2021-03-25] MED LIST changes: +CENTANY30 GM TOP
== END | disposition home or self-care (01) ==
LOC: RAD 09:59
PROVIDERS: ATTEND Family Medicine
DX: M16.12 Unilateral primary osteoarthritis, left hip (principal); M25.852 Other specified joint disorders, left hip; M54.16 Radiculopathy, lumbar region

== ENCOUNTER → 2021-05-12 | Outpatient (CLI) | payer OTHER | LOC: MRI 12:10 → RAD 12:10 → MRI 13:15 | PROVIDERS: ATTEND Family Medicine | DX: M47.26 Other spondylosis with radiculopathy, lumbar region (principal); M51.16 Intervertebral disc disorders with radiculopathy, lumbar region; M47.817 Spondylosis without myelopathy or radiculopathy, lumbosacral region; M47.814 Spondylosis without myelopathy or radiculopathy, thoracic region; M51.27 Other intervertebral disc displacement, lumbosacral region; M16.12 Unilateral primary osteoarthritis, left hip ==